=== PATIENT | female | born 1960 | race Caucasian/White ===

== ENCOUNTER 2017-01-02 22:30 | Observation (INO) | payer OTHER ==
[2017-01-02] MEDS ORDERED: ASPIRIN 81 MG PO STA (22:54)
--- NOTE | 2017-01-02 22:57 | ED ---
Chest Pain HPI - General Chief Complaint: Chest Pain Stated Complaint: chest pain Time Seen by Provider: 01/02/17 22:41 Source: patient Mode of arrival: ambulatory Limitations: no limitations - History of Present Illness Initial Comments: This patient is 56-year-old woman who presents to be evaluated for chest pain. Patient states that she was lying down to go to sleep when she developed substernal chest pain tonight dyspnea. She describes as pressure, constant, moderate severity. She states that she did take nitroglycerin and the pain resolved. She does have history of previous stenting and his current smoker. She states that it has been some years since she had either stress test or heart catheterization. MD Complaint: chest pain Onset/Timin -: hour(s) Onset: during rest Pain Location: substernal Severity: moderate Quality: tightness Consistency: constant, now resolved Improves With: nitroglycerin Worsens With: nothing Anginal Symptoms: dyspnea Treatments Prior to Arrival: nitroglycerin - Related Data Home Medications Medication Instructions Recorded Confirmed Aspirin 325 mg PO DAILY 09/09/13 01/02/17 Atorvastatin [Lipitor] 40 mg PO HS 08/04/15 01/02/17 Acetaminophen [Tylenol Extra 500 mg PO DAILY PRN 01/02/17 01/02/17 Strength] Metoprolol Succinate [Toprol XL] 50 mg PO HS 01/02/17 01/02/17 Allergies Allergy/AdvReac Type Severity Reaction Status Date / Time Milk Containing Products Allergy Unknown Verified 01/02/17 22:59 [Dairy] amitriptyline AdvReac Cough Verified 01/02/17 22:58 Review of Systems ROS Statement: Those systems with pertinent positive or pertinent negative responses have been documented in the HPI. ROS Other: All systems not noted in ROS Statement are negative. Constitutional: Denies: fever, chills Respiratory: Reports: as per HPI, dyspnea. Denies: cough, wheezes Cardiovascular: Reports: as per HPI, chest pain. Denies: palpitations, orthopnea, edema, syncope Gastrointestinal: Denies: abdominal pain, nausea, vomiting, melena, hematochezia Genitourinary: Denies: dysuria, hematuria Musculoskeletal: Denies: back pain Skin: Denies: rash Neurological: Denies: headache EKG Findings - EKG Results: EKG: interpreted by ERMD, sinus rhythm (Rate 107), normal axis, normal QRS - Blocks, [place], Hypertrophy, ST Abn: Repolarization changes or abnormalities: nonspecific abnormality, ST segment, and/or T wave Past Medical History Past Medical History: Coronary Artery Disease (CAD), Hyperlipidemia, Hypertension, Myocardial Infarction ([place]) Additional Past Medical History / Comment(s): recent abdominal pain, gas,, bloating, frequent loose stools/[place] X 3 Last Myocardial Infarction Date:: 2010 History of Any Multi-Drug Resistant Organisms: None Reported Past Surgical History: Cholecystectomy, Heart Catheterization With Stent Additional Past Surgical History / Comment(s): COLONOSCOPY Past Anesthesia/Blood Transfusion Reactions: Previous Problems w/ Anesthesia Additional Past Anesthesia/Blood Transfusion Reaction / Comment(s): some kind of problem years ago w/something for dental procedure, not sure what it was called" Date of Last Stent Placement:: 2010 Past Psychological History: Anxiety Smoking Status: Current every day smoker Past Drug Use History: None Reported - Past Family History Sister(s) Family Medical History: Deep Vein Thrombosis (DVT) General Exam Limitations: no limitations General appearance: alert, in no apparent distress Head exam: Present: atraumatic, normocephalic Eye exam: Present: normal appearance. Absent: scleral icterus, conjunctival injection ENT exam: Present: mucous membranes dry Neck exam: Present: normal inspection Respiratory exam: Present: normal lung sounds bilaterally. Absent: respiratory distress, wheezes, rales, rhonchi, stridor, chest wall tenderness, accessory muscle use, decreased breath sounds, prolonged expiratory Cardiovascular Exam: Present: normal rhythm, tachycardia (Rate 104 at my exam), normal heart sounds. Absent: systolic murmur, diastolic murmur, rubs, gallop GI/Abdominal exam: Present: soft. Absent: distended, tenderness, guarding, rebound, rigid, mass Extremities exam: Present: normal inspection, normal capillary refill. Absent: pedal edema, calf tenderness Back exam: Absent: CVA tenderness (R), CVA tenderness (L) Neurological exam: Present: alert Skin exam: Present: warm, dry, intact, normal color. 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
[2017-01-02 23:06] LABS: Basophils # (A) 0.1 k/uL (0-0.2); Basophils % (A) 1 %; CH 30.3; CHCM 32.4; Eosinophils # (A) 0.4 k/uL (0-0.7); Eosinophils % (A) 3 %; HCT 45.8 % (34.0-46.0); HDW 2.15; Luc # (Auto) 0.18; Luc % (Auto) 2; Lymphocytes # (A) 4.1 k/uL (1.0-4.8); Lymphocytes % (A) 35 %; MCH 30.8 pg (25.0-35.0); MCHC 32.7 g/dL (31.0-37.0); Mean Platelet Volume 7.5; Monocytes # (A) 0.7 k/uL (0-1.0); Monocytes % (A) 6 %; Neutrophils # (A) 6.2 k/uL (1.3-7.7); Neutrophils % (A) 54 %; RBC 4.87 m/uL (3.80-5.40); RDW 13.8 % (11.5-15.5); WBC 11.7 k/uL (3.8-10.6); WBC (Perox) 11.58
[2017-01-02 23:16] LABS: ALT 39 U/L (9-52); AST 18 U/L (14-36); Alkaline Phosphatase 82 U/L (38-126); Anion Gap 7 mmol/L; Blood Urea Nitrogen 11 mg/dL (7-17); Calcium 9.7 mg/dL (8.4-10.2); Carbon Dioxide 23 mmol/L (22-30); Chloride 111 mmol/L (98-107); Glucose 118 mg/dL (74-99); Magnesium 1.9 mg/dL (1.6-2.3); Non-African American GFR(MDRD) >60 (>60 ml/min/1.73 sqM); Sodium 141 mmol/L (137-145); Total Bilirubin 0.2 mg/dL (0.2-1.3); Total Protein 7.1 g/dL (6.3-8.2)
[2017-01-02 23:22] LABS: Partial Thromboplastin Time 25.8 sec (22.0-30.0); Prothrombin Time 9.8 sec (9.0-12.0)
[2017-01-02 23:27] LABS: Creatine Kinase 58 U/L (30-135)
--- NOTE | 2017-01-02 23:35 | XR ---
EXAMINATION TYPE: XR chest 1V portable DATE OF EXAM: 01/02/2017 COMPARISON: 11/29/2015 HISTORY: Chest pain TECHNIQUE: Single frontal view of the chest is obtained. FINDINGS: There is no heart failure nor confluent pneumonic infiltrate. There are no hilar masses. C ostophrenic angles are clear. There are chest leads. Bony thorax is intact. IMPRESSION: No active cardiopulmonary disease. Normal heart. No change.
[2017-01-02 23:41] LABS: Creatine Kinase MB 0.6 ng/mL (0.0-2.4); Troponin I <0.012 ng/mL (0.000-0.034)
[2017-01-03] MEDS ORDERED: NITROGLYCERIN SL TABS 0.4 MG TAB SUBLINGUAL PRN ×3 (00:34→10:56)
[2017-01-03] MEDS ORDERED: ACETAMINOPHEN TAB 500 MG TAB PO PRN (00:36)
[2017-01-03 01:43] VITALS: BMI 28.2
[2017-01-03 06:12] LABS: Creatine Kinase 44 U/L (30-135)
[2017-01-03 06:24] LABS: Creatine Kinase MB 0.5 ng/mL (0.0-2.4); Troponin I <0.012 ng/mL (0.000-0.034)
[2017-01-03] MEDS ORDERED: SODIUM CHLORIDE 0.9% 1,000 ML in EMPTY BAG 1 BAG IV ONE (09:03)
[2017-01-03] MEDS ORDERED: ALPRAZolam 0.5 MG TAB PO PRN (09:03)
[2017-01-03] MEDS ORDERED: ASPIRIN 325 MG TAB PO STA (09:03)
[2017-01-03] MEDS ORDERED: ALPRAZolam 0.25 MG TAB PO PRN (09:03)
[2017-01-03] MEDS ORDERED: ATORVASTATIN 80 MG TAB PO STA (09:03)
[2017-01-03] MEDS ORDERED: VERAPAMIL 2.5 MG/ML 2 ML AMP ONE (09:19)
[2017-01-03] MEDS ORDERED: LIDOCAINE 2% INJ 20 MG/ML (20 ML MDV) ONE (09:20)
[2017-01-03] MEDS ORDERED: fentaNYL (PF) 50 MCG/ML 2 ML AMP ONE (09:34)
[2017-01-03] MEDS ORDERED: HEPARIN SODIUM 1,000 UN/ML (10ML VL) ONE (09:34)
[2017-01-03] MEDS ORDERED: IV FLUID CONTINUATION 800 ML IV ONE (09:35)
[2017-01-03] MEDS ORDERED: ASPIRIN 325 MG TAB ONE (09:36)
[2017-01-03] MEDS ORDERED: ASPIRIN 325 MG TAB PO ONE (09:42)
[2017-01-03] MEDS ORDERED: fentaNYL (PF) 50 MCG/ML 2 ML AMP IVP ONE (09:53)
[2017-01-03] MEDS ORDERED: LIDOCAINE 2% INJ 20 MG/ML SQ ONE (09:58)
[2017-01-03] MEDS ORDERED: VERAPAMIL SYRINGE (5 MG/10 ML) INTRAARTER ONE (10:02)
[2017-01-03] MEDS ORDERED: MIDAZOLAM 2 MG/2 ML VIAL ONE (10:04)
[2017-01-03] MEDS ORDERED: MIDAZOLAM 2 MG/2 ML VIAL IVP ONE (10:04)
--- NOTE | 2017-01-03 10:04 | P.CRDCN ---
History of Present Illness Consult date: 01/03/17 History of present illness: This is a 56-year-old female past medical history significant for coronary artery disease with 3 stents to the RCA 2003 2 in mid RCA, 2005 1 in mid RCA and 2010 1 mid and 1 proximal RCA, dyslipidemia and chronic tobacco abuse. She follows with Dr. Jimenez in the office. She has not seen him since 2014. We have been asked to see this patient in consultation for complaints of chest discomfort last night while she was getting ready for bed. She states she felt a heaviness in her chest that went up into her neck and felt tight. This was associated with palpitations, dizziness and nausea. She denies shortness of breath, diaphoresis or vomiting. She took sublingual nitroglycerin at home and the pain subsided mildly but still persisted until she arrived in the hospital. EKG reveals sinus mechanism with T-wave inversions in the inferior leads. Chest x-ray negative for acute cardiopulmonary process. Blood pressure 124/76 with a heart rate of 79. Hemoglobin 15.0, platelets 275, d-dimer negative, BUS 11, creatinine 0.5, potassium 4, magnesium 1.9, cardiac enzymes normal 2. Current cardiac medications include aspirin 325 mg daily, Toprol 50 mg daily and atorvastatin 40 mg daily. Most recent echocardiogram was performed June 2014 ejection fraction 45% with mild mitral regurgitation. Review of Systems CONSTITUTIONAL: Denies fever. Denies chills. EYES: Denies blurred vision. Denies vision changes. Denies eye pain. EARS, NOSE, MOUTH & THROAT: Denies headache. Denies sore throat. Denies ear pain. CARDIOVASCULAR: Complains of one episode of chest tightness, resolved. Denies shortness of breath. Denies orthopnea. Denies PND. Complains of intermittent palpitations. RESPIRATORY: Denies cough. GASTROINTESTINAL: Denies abdominal pain. Denies diarrhea. Denies constipation. Complains of one episode of nausea, resolved. Denies vomiting. MUSCULOSKELETAL: Denies myalgias. INTEGUMENTARY: Denies pruitis. Denies rash. NEUROLOGIC: Denies numbness. Denies tingling. Denies weakness. PSYCHIATRIC: Denies anxiety. Denies depression. ENDOCRINE: Denies fatigue. Denies weight change. Denies polydipsia. Denies polyurina. GENITOURINARY: Denies burning, hematuria or urgency with micturation. HEMATOLOGIC: Denies history of anemia. Denies bleeding. Past Medical History Past Medical History: Coronary Artery Disease (CAD), Hyperlipidemia, Myocardial Infarction ([place]) Additional Past Medical History / Comment(s): recent abdominal pain, gas,, bloating, frequent loose stools/[place] X 3, hypotension Last Myocardial Infarction Date:: 2010 History of Any Multi-Drug Resistant Organisms: None Reported Past Surgical History: Cholecystectomy, Heart Catheterization With Stent Additional Past Surgical History / Comment(s): COLONOSCOPY, 3 stents Past Anesthesia/Blood Transfusion Reactions: Previous Problems w/ Anesthesia Additional Past Anesthesia/Blood Transfusion Reaction / Comment(s): some kind of problem years ago w/something for dental procedure, not sure what it was called" Date of Last Stent Placement:: 2010 Past Psychological History: Anxiety Smoking Status: Current some day smoker Past Alcohol Use History: None Reported Additional Past Alcohol Use History / Comment(s): STARTED SMOKING AT AGE 17- SMOKES 1PPD Past Drug Use History: None Reported - Past Family History Sister(s) Family Medical History: Deep Vein Thrombosis (DVT) Additional Family Medical History / Comment(s): fem bypass Brother(s) Family Medical History: CVA/TIA Mother Family Medical History: Coronary Artery Disease (CAD) Additional Family Medical History / Comment(s): Heart issues Father Additional Family Medical History / Comment(s): heart issues Medications and Allergies Home Medications Medication Instructions Recorded Confirmed Type Atorvastatin [Lipitor] 40 mg PO HS 08/04/15 01/02/17 History Metoprolol Succinate [Toprol XL] 50 mg PO HS 01/02/17 01/02/17 History Aspirin EC [Ecotrin] 325 mg PO DAILY 01/03/17 01/03/17 History Allergies Allergy/AdvReac Type Severity Reaction Status Date / Time Milk Containing Products Allergy Unknown Verified 01/03/17 01:37 [Dairy] amitriptyline AdvReac Cough Verified 01/03/17 01:37 Physical Exam Vitals: Vital Signs Temp Pulse Pulse Pulse Resp BP BP 01/03/17 07:37 98.0 F 79 18 124/76 01/03/17 03:10 97.8 F 86 16 01/03/17 03:07 18 01/03/17 01:51 86 18 01/03/17 01:00 88 18 151/87 01/02/17 22:58 104 H 18 152/86 01/02/17 22:57 103 H 01/02/17 22:32 99.3 F 110 H 20 175/84 BP Pulse Ox 01/03/17 07:37 94 L 01/03/17 03:10 144/83 96 01/03/17 03:07 01/03/17 01:51 01/03/17 01:00 98 01/02/17 22:58 97 01/02/17 22:57 01/02/17 22:32 96 Intake and Output 01/02/17 01/03/17 01/03/17 22:59 06:59 14:59 Other: Voiding Method Toilet # Voids 1 Weight 68.039 kg 67.7 kg GENERAL: This is a 56-year-old female in no apparent distress at the time of my examination. HEENT: Head is atraumatic, normocephalic. Pupils are equal, round. Sclerae anicteric. Conjunctivae are clear. Mucous membranes of the mouth are moist. Neck is supple. There is no jugular venous distention. No carotid bruit is heard. LUNGS: Clear to auscultation no wheezes, rales or rhonchi. No chest wall tenderness is noted on palpation or with deep breathing. HEART: Regular rate and rhythm without murmurs, rubs or gallops. S1 and S2 heard. ABDOMEN: Soft, nontender. Bowel sounds are heard. No organomegaly noted. EXTREMITIES: 2+ peripheral pulses with no evidence of peripheral edema and no calf tenderness noted. NEUROLOGIC: Patient is awake, alert and oriented x3. Results 01/02/17 22:15 01/02/17 22:15 Cardiac Enzymes 01/02/17 01/02/17 01/03/17 Range/Units 22:15 22:15 05:26 AST 18 (14-36) U/L CK-MB (CK-2) 0.6 0.5 (0.0-2.4) ng/mL Troponin I <0.012 <0.012 (0.000-0.034) ng/mL Coagulation 01/02/17 Range/Units 22:15 PT 9.8 (9.0-12.0) sec APTT 25.8 (22.0-30.0) sec CBC 01/02/17 Range/Units 22:15 WBC 11.7 H (3.8-10.6) k/uL RBC 4.87 (3.80-5.40) m/uL Hgb 15.0 (11.4-16.0) gm/dL Hct 45.8 (34.0-46.0) % Plt Count 275 (150-450) k/uL Comprehensive Metabolic Panel 01/02/17 Range/Units 22:15 Sodium 141 (137-145) mmol/L Potassium 4.0 (3.5-5.1) mmol/L Chloride 111 H (98-107) mmol/L Carbon Dioxide 23 (22-30) mmol/L BUN 11 (7-17) mg/dL Creatinine 0.50 L (0.52-1.04) mg/dL Glucose 118 H (74-99) mg/dL Calcium 9.7 (8.4-10.2) mg/dL AST 18 (14-36) U/L ALT 39 (9-52) U/L Alkaline Phosphatase 82 (38-126) U/L Total Protein 7.1 (6.3-8.2) g/dL Albumin 4.0 (3.5-5.0) g/dL Current Medications Generic Name Dose Route Start Last Admin Trade Name Freq PRN Reason Stop Dose Admin Acetaminophen 500 mg 01/03/17 00:36 Tylenol Tab PO DAILY PRN Pain Aspirin 325 mg 01/04/17 09:00 Aspirin PO DAILY JULIA Atorvastatin Calcium 40 mg 01/03/17 21:00 Lipitor PO HS JULIA Metoprolol Succinate 50 mg 01/03/17 21:00 Toprol Xl PO HS JULIA Nitroglycerin 0.4 mg 01/03/17 00:34 Nitrostat SUBLINGUAL Q5M PRN Chest Pain Sodium Chloride 10 ml 01/03/17 09:00 Saline Flush IV BID JULIA Intake and Output 01/02/17 01/03/17 01/03/17 22:59 06:59 14:59 Other: Voiding Method Toilet # Voids 1 Weight 68.039 kg 67.7 kg 01/02/17 22:15 01/02/17 22:15 Assessment and Plan Assessment: ASSESSMENT 1. Chest pain at rest with multiple associated symptoms. Suggestive of progression of CAD 2. History of coronary artery disease with multiple stents to the RCA 3. Hyperlipidemia 4. Chronic tobacco abuse PLAN Obtain 2-D echocardiogram and Doppler study to assess cardiac structure and function. Due to the probability that there is progression of coronary artery disease we recommended she proceed with cardiac catheterization at this time. I have discussed the risks, benefits and alternative therapies for the above-mentioned procedure and for both sedation/analgesia as well as necessary blood product administration, if indicated, as they pertain to this patient. The patient has indicated understanding and acceptance of the risks and procedures discussed. She has agreed to move forward with the above-stated procedure and has been scheduled for this morning. Smoking cessation has been discussed. Nurse Practitioner note has been reviewed, I agree with a documented findings and plan of care. Patient was seen and examined.
[2017-01-03] MEDS ORDERED: BIVALIRUDIN BOLUS 250 MG/50 ML IV ONE (10:14)
[2017-01-03] MEDS ORDERED: BIVALIRUDIN 250 MG in SODIUM CHLORIDE 0.9% 50 ML IV ONE (10:15)
[2017-01-03] MEDS ORDERED: CLOPIDOGREL 75 MG TAB ONE ×2 (10:17)
[2017-01-03] MEDS ORDERED: NITROGLYCERIN 1000MCG/10ML SYRINGE INTRACORON ONE (10:20)
[2017-01-03] MEDS ORDERED: CLOPIDOGREL 75 MG TAB PO ONE (10:23)
[2017-01-03] MEDS ORDERED: IOHEXOL 350 MG/ML 125ML BOTTLE INJ ONE (10:39)
[2017-01-03] MEDS ORDERED: MAG HYDROX/AL HYDROX/SIMETH 30 ML CUP PO PRN (10:56)
[2017-01-03] MEDS ORDERED: RX INFO: IV CONTRAST WAS GIVEN 1 EACH MISC MISCELLANE PRN (10:56)
[2017-01-03] MEDS ORDERED: ATROPINE SULFATE 0.1 MG/ML 10ML SYRINGE IV PRN (10:56)
[2017-01-03] MEDS ORDERED: ZOLPIDEM 5 MG TAB PO PRN (10:56)
--- NOTE | 2017-01-03 11:27 | CC ---
CARDIAC CATHETERIZATION REPORT Mrs. Hopson is a 56-year-old female with a known history of coronary artery disease, status post stenting of 2003, 2005 and most recently 2010, who presented with symptoms of chest discomfort, relieved with nitroglycerin, highly suggestive of angina pectoris. Her EKG and enzymes were unremarkable, but review of her risk factors and her prior history, recommendation made regarding cardiac catheterization. The procedure risks and complication were discussed with the patient who is in full understanding and agreement. PROCEDURE: Patient was brought to the [facility] in a fasting semi-sedated state after receiving fentanyl and Benadryl and achieving moderate conscious sedated state. Using Xylocaine anesthesia and Seldinger technique, a 6-Bengali sheath was introduced in the right radial artery. Selective right and left angiography performed using 5-Bengali 3.5 bend right and left Herminia catheter, multiple views of the coronary artery including hemiaxial views obtained. Following that, a 5-Bengali tight pigtail catheter was introduced into the left ventricle and a 30 degree GOLD view of the left ventricle was obtained. Following that, catheters were removed, images were reviewed. FINDINGS: 1. LEFT MAIN: This is a large-sized vessel bifurcating into left circumflex, left anterior descending artery. The left main coronary artery is without any evidence of high-grade stenosis. 2. LEFT ANTERIOR DESCENDING ARTERY: This is a large-sized vessel, reaching toward the apex with a wraparound apex segment, giving rise to a diagonal branch of moderate caliber. The left anterior descending artery as well as branches have no evidence of obstructive coronary disease. 3. LEFT CIRCUMFLEX: This is a nondominant vessel, giving rise to a large obtuse marginal branch. The left circumflex has a 10% to 20% plaque in the mid segment. The rest of the vessel has no high-grade stenosis. 4. RIGHT CORONARY ARTERY: This is a large dominant vessel bifurcating into PDA and posterior lateral sagittal branches. The mid and distal segment are stented distally prior to the bifurcation. At the distal edge of the stent, there is a 99% stenosis. The rest of the stented segment in the mid vessel has intimal restenoses of about 30%. Distal to the PDA and PLV have no high-grade stenosis. 5. LEFT VENTRICULOGRAM: Left ventriculogram is performed in 30 degree GOLD view and revealed inferobasal hypokinesis. The ejection fraction is estimated at 50%. There was no significant mitral regurgitation. 6. HEMODYNAMICS: There was no gradient across the aortic valve. The left ventricular end-diastolic pressure was 12 mmHg penis/. CONCLUSION: 1. Mild disease in the left circumflex. 2. Significant stenosis in the distal right coronary artery. 3. Minimally impaired left ventricular systolic function. RECOMMENDATION: In view of the finding on the anatomy, I would recommend proceeding with the angioplasty and stenting of the right coronary artery. The procedure, risks and complications were discussed with the patient who is in full understanding and agreement. MMDAYSI / IJN: [id number] /
--- NOTE | 2017-01-03 11:42 | AS ---
ARTERIAL STUDY Mrs. Hopson is a 56-year-old female with a known history of coronary artery disease, prior stenting of the right coronary artery, who presented with symptoms of chest discomfort, underwent cardiac catheterization, was found to have significant obstructive disease involving the distal right coronary artery. In view of that, recommendation made regarding angioplasty and stenting. The procedure as well as risks and complication were discussed with the patient who is in full understanding and agreement. PROCEDURE: A 6-Georgian left 3.5 bend FR guiding catheter was introduced in the system. After cannulating the ostium of the right coronary artery, a 0.014 advanced medium weight J- wire was advanced across the lesion, positioned distally. Then a 2.5 x 12 mm Trek balloon was advanced and one inflation at 10 atmospheres was done. Following that, the balloon was removed and a 2.75 x 18 mm Xience Alpine stent was deployed, post-dilated at 16 atmospheres. Subsequent inflation with the balloon in the proximal and mid segment of the right coronary artery were performed at a maximum of 16 atmospheres. After the last inflation, after appropriate wait, the balloon and the guidewire were withdrawn back in the guiding catheter. Images were obtained and repeated. Those images revealed stable successful stenting. At that point, the guiding catheter, the balloon and the guidewire guide were removed. The sheath was removed. Hemostasis was obtained with deployment of a TR band. There was no immediate complication. Patient is returned to her room in stable condition. Of note, patient had chest discomfort and jaw discomfort with inflation that resulted in procedure. She received Angiomax per protocol as well as oral loading dose of clopidogrel. FINDINGS: Successful stenting of the distal right coronary artery with reduction of stenosis from 99% to 0%. RECOMMENDATION: Patient will be continued on aspirin, Plavix, beta maggie, DINAH inhibitor, and statin. The importance of dual antiplatelet treatment was discussed with the patient and her family who are in full understanding and agreement. DURATION OF THE PROCEDURE: 41 minutes. MMODL / IJN: [id number] /
--- NOTE | 2017-01-03 11:47 | LTR ---
DATE OF SERVICE: 01/03/2017 RE: Rose Hopson Dear Dr. Solis; I had the pleasure to perform cardiac catheterization, coronary angioplasty and stenting on Ms. Hopson at [facility] on January 03, 2017 and a full copy of the procedure note will be forwarded to you. In brief, she underwent successful stenting of the distal right coronary artery using a drug-eluting stent. I am hopeful that this procedure will stabilize her status and thank you again for allowing me to participate in this patient's care. Please feel free to call for any questions. Sincerely yours, MD AYAAN Medrano / ALEJANDRON: [id number] /
[2017-01-03] MEDS ORDERED: METOPROLOL SUCCINATE (ER) 50 MG TAB.ER.24H PO SCH (21:00)
[2017-01-03] MEDS ORDERED: ATORVASTATIN 40 MG TAB PO SCH (21:00)
--- NOTE | 2017-01-04 04:29 | HP ---
HISTORY AND PHYSICAL CHIEF COMPLAINT: 56-year-old, white female, with history of stents to the RCA in 2004, to the mid RCA in 2005 and one to the mid RCA in 2010. Chronic nicotine addiction, dyslipidemia, comes into the hospital with some chest discomfort. He is getting ready for bed. Heaviness in her chest, her neck felt tight. She had some palpitations, dizziness and nausea and no shortness of breath. She took some nitroglycerin with mild improvement. Brought to the hospital and admitted to rule out myocardial infarction. So far troponins are negative times two. Chest x-ray was negative for any infiltrate. D- dimer was negative. MEDICATION: At home include: 1. Aspirin 325 mg daily. 2. Toprol-XL 50 mg daily. 3. Atorvastatin 40 mg daily. 4. Echo in 2014 showed ejection fraction 45%. REVIEW OF SYSTEMS: Fourteen point review of systems negative except for mentioned in HPI. No history of trauma to the chest. PAST MEDICAL HISTORY: Coronary artery disease. Stents as mentioned above, dyslipidemia, prior myocardial infarction. SURGICAL HISTORY: Cholecystectomy, heart catheterization with stent. Past psych history of anxiety. SOCIAL HISTORY: Current everyday smoker. FAMILY HISTORY: Sister with DVT, brother with CVA/TIA, mother with coronary artery disease. Father with heart issues. Home medications as mentioned above. ALLERGIES: MILK AND AMITRIPTYLINE. PHYSICAL EXAMINATION: Vital signs: Temperature 98, pulse 80s to 70s respiratory rate 16 to 18, blood pressure is 150s to 170s over 80s. Cardiovascular S1, S2. Lungs transmitted upper sounds. GI soft, nontender. Psych anxious and nervous. Vascular normal dorsalis pedis, posterior tibial, radial pulse. Cranial nerves, neurologic exam cranial nerves are intact. Psych as mentioned above. LABORATORY DATA: White count 11.7, hemoglobin 15.0, BUN 11, creatinine 0.5. ASSESSMENT: 1. Atypical chest pain. Rule out myocardial infarction. 2. coronary artery disease. 3. History of stents to right coronary artery. 4. Nicotine addition. 5. Dyslipidemia. PLAN: 1. Cardiology consult. Rule out myocardial infarction. 2. Please see further orders. MMODL / IJN: [id number] /
[2017-01-04 06:36] LABS: Anion Gap 8 mmol/L; Blood Urea Nitrogen 10 mg/dL (7-17); Calcium 9.2 mg/dL (8.4-10.2); Carbon Dioxide 23 mmol/L (22-30); Chloride 107 mmol/L (98-107); Glucose 107 mg/dL (74-99); Non-African American GFR(MDRD) >60 (>60 ml/min/1.73 sqM); Potassium 4.6 mmol/L (3.5-5.1); Sodium 138 mmol/L (137-145)
[2017-01-04] MEDS ORDERED: ASPIRIN 325 MG TAB PO SCH (09:00)
[2017-01-04] MEDS ORDERED: ASPIRIN 81 MG PO SCH (09:00)
[2017-01-04] MEDS ORDERED: CLOPIDOGREL 75 MG TAB PO SCH (09:00)
[2017-01-04 09:38] VITALS: BP 129/66; PULSE 73; RESP 18; TEMP 98.2
--- NOTE | 2017-01-04 10:59 | P.PN ---
Subjective Progress Note Date: 01/04/17 Principal diagnosis: RCA stent This is a pleasant 56-year-old female with past medical history significant for coronary artery disease with prior RCA stenting, hyperlipidemia , chronic tobacco use, who presented to the hospital with symptoms of chest discomfort. She was taken to the cardiac catheterization lab by Dr. Jimenez where she underwent angioplasty and stenting of the RCA. EKG this morning showed normal sinus rhythm with no changes from post-PCI. Blood pressure 128/ 60 with heart rate in the 70s, 95% on room air. Sodium 138, potassium 4.6, BUN 10, creatinine 0.6. Patient seen and examined this morning, denies any chest pain or difficulty in breathing. She's been up ambulating without any difficulty. Objective - Vital Signs Vital signs: Vital Signs Temp 98.2 F 01/04/17 09:00 Pulse 73 01/04/17 09:00 Resp 18 01/04/17 09:00 BP 129/66 01/04/17 09:00 Pulse Ox 95 01/04/17 09:00 Intake & Output 01/03/17 01/04/17 01/04/17 18:59 06:59 18:59 Intake Total 509 870 240 Output Total 900 Balance 509 -30 240 Weight 67.7 kg 67 kg Intake: IV 269 Intake, IV Titration 10 Amount Sodium Chloride 0.9% 1, 10 000 ml In Empty Bag 1 bag @ 1 ML/KG/HR 67.7 mls/hr IV .[id number] ONE Rx#: [id number] Oral 240 860 240 Output: Urine 900 Other: Voiding Method Toilet Toilet # Voids 1 1 - Exam PHYSICAL EXAMINATION: HEENT: [Head is atraumatic, normocephalic. Pupils equal, round. Neck is supple. There is no elevated jugular venous pressure.] HEART EXAMINATION: [Heart S1, S2 normal. No murmur or gallop heard.] CHEST EXAMINATION:[ Lungs are clear to auscultation and precussion. No chest wall tenderness is noted on palpation or with deep breathing.] ABDOMEN: [ Soft, nontender. Bowel sounds are heard. No organomegaly noted]. Right radial site clean and dry, good distal pulse. EXTREMITIES:[ 2+ peripheral pulses with no evidence of peripheral edema and no calf tenderness noted]. NEUROLOGIC [patient is awake, alert and oriented -3.] . - Labs CBC & Chem 7: 01/02/17 22:15 01/04/17 05:41 Labs: Abnormal Lab Results - Last 24 Hours (Table) 01/04/17 Range/Units 05:41 Glucose 107 H (74-99) mg/dL Assessment and Plan Plan: Assessment and plan #1 chest pain, status post angioplasty and stenting of the right coronary artery #2 known history of coronary artery disease with prior RCA stenting #3 hyperlipidemia #4 nicotine dependence Plan Patient may be discharged home today. We will make her a follow-up appointment to see Dr. Jimenez in the office post discharge. Patient will be discharged home on aspirin 81 mg daily, Lipitor 40 mg daily, Plavix 75 mg daily, metoprolol tartrate 50 mg at at bedtime, and sublingual nitroglycerin as needed for chest pain. Patient has been provided prescriptions for all of the above medications and has been educated regarding the importance of nicotine cessation. DNP note has been reviewed, I agree with a documented findings and plan of care. Patient was seen and examined.
--- NOTE | 2017-01-14 11:48 | ECHOF ---
Referral Reason:chest pain MEASUREMENTS -------- HEIGHT: 91.4 cm WEIGHT: 67.6 kg BP: IVSd: 0.9 cm (0.6 - 1.1) LVIDd: 3.6 cm (3.9 - 5.3) LVPWd: 1.0 cm (0.6 - 1.1) IVSs: 1.2 cm LVIDs: 3.2 cm LVPWs: 1.4 cm LA Diam: 3.3 cm (2.7 - 3.8) Ao Diam: 3.0 cm (2.0 - 3.7) AV Cusp: 1.9 cm (1.5 - 2.6) LA Diam: 3.3 cm (2.7 - 3.8) MV EXCURSION: 18.405 mm (> 18.000) MV EF SLOPE: 118 mm/s (70 - 150) EPSS: 2.3 cm MV E Kofi: 0.43 m/s MV DecT: 310 ms MV A Kofi: 0.82 m/s MV E/A Ratio: 0.53 RAP: 5.00 mmHg RVSP: 18.79 mmHg FINDINGS -------- Sinus rhythm. This was a technically good study. The left ventricular size is normal. Left ventricular wall thickness is normal. Overall left vent ricular systolic function is mildly impaired with, an EF between 45 - 50 %. Basal lateral LV wall m otion is hypokinetic. Basal inferior LV wall motion is hypokinetic. The right ventricle is normal in size. Normal LA size by volume 22+/-6 ml/m2. The right atrial size is normal. The aortic valve is trileaflet, and appears structurally normal. No aortic stenosis or regurgitation. The mitral valve is normal. Mild mitral regurgitation is present. Mild tricuspid regurgitation present. There is no evidence of pulmonary hypertension. The right v entricular systolic pressure, as measured by Doppler, is 18.79mmHg. Trace/mild (physiologic) pulmonic regurgitation. The aortic root size is normal. There is no pericardial effusion. CONCLUSIONS -------- 1. Sinus rhythm. 2. This was a technically good study. 3. The left ventricular size is normal. 4. Overall left ventricular systolic function is mildly impaired with, an EF between 45 - 50 %. 5. Basal lateral LV wall motion is hypokinetic. 6. Basal inferior LV wall motion is hypokinetic. 7. Normal LA size by volume 22+/-6 ml/m2. 8. The aortic valve is trileaflet, and appears structurally normal. No aortic stenosis or regurgitati on. 9. Mild mitral regurgitation is present. 10. Mild tricuspid regurgitation present. 11. There is no evidence of pulmonary hypertension. 12. Trace/mild (physiologic) pulmonic regurgitation. 13. The aortic root size is normal. 14. There is no pericardial effusion. [employer] DERRICK OPERATOR: Jessica Peter RDCS
--- NOTE | 2017-02-10 10:46 | P.DS ---
Providers Date of admission: 01/03/17 00:34 Attending physician: Lucio Solis Consults: 01/03/17 00:34 Consult Physician Routine Consulting Provider: Vicki Beard Consult Reason/Comments: chest pain Do you want consulting provider notified?: Yes 01/03/17 10:56 Consult Physician Routine Consulting Provider: Cardiology Renzo Consult Reason/Comments: Post Interventional patient Do you want consulting provider notified?: Already Contacted Primary care physician: [facility] Course: Patient was admitted with atypical chest pain very suspicious for angina patient was placed on cardiac medications she was taking the 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 angioplasty which found on occlusion on the right distal coronary artery for which a stent was placed risk factor modification was given to the patient all medicines were adjusted for the patient she'll follow-up with cardiology post angioplasty please thought please see all cardiology reports in the chart all laboratory values and x-rays Patient Condition at Discharge: Fair Plan - Discharge Summary New Discharge Prescriptions: New Aspirin 81 mg PO DAILY #81 chew Clopidogrel [Plavix] 75 mg PO DAILY #30 tab Nitroglycerin Sl Tabs [Nitrostat] 0.4 mg SUBLINGUAL Q5M PRN #25 tab PRN Reason: Chest Pain Continue Atorvastatin [Lipitor] 40 mg PO HS Metoprolol Succinate [Toprol XL] 50 mg PO HS Discontinued Aspirin EC [Ecotrin] 325 mg PO DAILY Discharge Medication List Atorvastatin [Lipitor] 40 mg PO HS 08/04/15 [History] Metoprolol Succinate [Toprol XL] 50 mg PO HS 01/02/17 [History] Aspirin 81 mg PO DAILY #81 chew 01/04/17 [Rx] Clopidogrel [Plavix] 75 mg PO DAILY #30 tab 01/04/17 [Rx] Nitroglycerin Sl Tabs [Nitrostat] 0.4 mg SUBLINGUAL Q5M PRN #25 tab 01/04/17 [Rx ] Follow up Appointment(s)/Referral(s): Jose Jimenez MD [STAFF PHYSICIAN] - 01/11/17 9:30 am Lucio Solis MD [Primary Care Provider] - 01/07/17 1:00 pm Patient Instructions/Handouts: *Surgery [facility] - After Heart Catheterization - Recreational Counselor Instructions, Left Heart Catheterization (DC), Heart Healthy Diet (DC) Discharge Disposition: HOME SELF-CARE
== END 2017-01-04 11:19 | disposition home or self-care (01) ==
LOC: EC 22:30 → 3OBS 01-03 00:34 → 6SEL 01-03 11:01
PROVIDERS: ADMIT Family Medicine; ATTEND Family Medicine
DX: I25.10 Atherosclerotic heart disease of native coronary artery without angina pectoris (principal); F17.200 Nicotine dependence, unspecified, uncomplicated; F41.9 Anxiety disorder, unspecified; I10 Essential (primary) hypertension; I25.2 Old myocardial infarction; E78.5 Hyperlipidemia, unspecified; Z95.5 Presence of coronary angioplasty implant and graft; Z82.49 Family history of ischemic heart disease and other diseases of the circulatory system; Z79.82 Long term (current) use of aspirin; Z79.899 Other long term (current) drug therapy; Z88.8 Allergy status to other drugs, medicaments and biological substances; Z91.011 Allergy to milk products; Z90.49 Acquired absence of other specified parts of digestive tract
CPT/HCPCS: 99285; 36415; 93005; 93306; 93458; 85379; 83880; 80053; 80048; 82550 ×2; 82553 ×2; 83735; 84484 ×2; 85025; 85610; 85730; 71010; G0378 ×3; C1769 ×2; C1894; C1725; C1887; C1874; J2001; J2250; J3010; Q9957; J0583; Q9967

== ENCOUNTER 2017-11-09 21:37 | Emergency (ER) | payer OTHER ==
[2017-11-09 21:44] VITALS: RESP 18
[2017-11-09 23:12] LABS: Basophils # (A) 0.1 k/uL (0-0.2); Basophils % (A) 1 %; Eosinophils # (A) 0.2 k/uL (0-0.7); Eosinophils % (A) 2 %; HCT 45.3 % (34.0-46.0); Lymphocytes # (A) 3.3 k/uL (1.0-4.8); Lymphocytes % (A) 26 %; MCH 31.1 pg (25.0-35.0); MCHC 33.1 g/dL (31.0-37.0); MCV 94.1 fL (80.0-100.0); Monocytes # (A) 0.6 k/uL (0-1.0); Monocytes % (A) 5 %; Neutrophils # (A) 8.6 k/uL (1.3-7.7); Neutrophils % (A) 66 %; Platelet Count 263 k/uL (150-450); RBC 4.82 m/uL (3.80-5.40); RDW 12.8 % (11.5-15.5)
[2017-11-09 23:17] LABS: Appearance,Urine Turbid (Clear); Bilirubin,Urine Negative (Negative); Blood,Urine Large (Negative); Color,Urine Dark Brown; Glucose,Urine (UA) 1+ (Negative); Ketones,Urine Trace (Negative); Leukocyte Esterase,Urine Moderate (Negative); Mucus,Urine Many /hpf; Nitrite,Urine Negative (Negative); PH, Urine 5.5 (5.0-8.0); Protein,Urine 2+ (Negative); RBC,Urine >182 /hpf (0-5); Urobilinogen,Urine <2.0 mg/dL (<2.0)
[2017-11-09 23:27] LABS: Anion Gap 8 mmol/L; Blood Urea Nitrogen 12 mg/dL (7-17); Calcium 9.2 mg/dL (8.4-10.2); Carbon Dioxide 24 mmol/L (22-30); Chloride 109 mmol/L (98-107); Glucose 139 mg/dL (74-99); Potassium 4.4 mmol/L (3.5-5.1); Sodium 141 mmol/L (137-145)
--- NOTE | 2017-11-09 23:35 | CT ---
EXAMINATION TYPE: CT renal stones wo con DATE OF EXAM: 11/09/2017 HISTORY: No prior, gross hematuria and RLQ pain, renal stone protocol CT DLP: 347.70 mGycm. Automated Exposure Control for Dose Reduction was Utilized. TECHNIQUE: CT scan of the abdomen and pelvis is performed without oral or IV contrast. COMPARISON: None FINDINGS: Lung bases are clear. There is no pleural effusion. Heart size is normal. Liver spleen pancreas appear normal. There are clips from cholecystectomy. Bile ducts are not dilated . There is no adrenal mass. Kidneys have normal size. There is right-sided hydronephrosis. There is m ild right-sided perinephric edema. There is mild right hydroureter. There are multiple vascular calci fications. A right ureteral calculus is possible. There is proximal right periureteral edema. There i s no evidence of obstruction on the left side. There is no retroperitoneal adenopathy. Abdominal aorta is atheromatous. There is no ascites. Bladder distends smoothly. Uterus is anteverted. There is L5-S1 spondylotic change. There is no compression fracture. There is no sign of pneumoperitoneum. Appendix is medial and appears normal. IMPRESSION: There is mild right-sided hydronephrosis and hydroureter. I suspect obstructing ureteral stone. There are numerous phleboliths in the pelvis and along the right ureter.
--- NOTE | 2017-11-09 23:53 | ED ---
Female Urogenital HPI - General Chief complaint: Urogenital Stated complaint: Abd pain Time Seen by Provider: 11/09/17 22:22 Source: patient Mode of arrival: ambulatory Limitations: no limitations - History of Present Illness Initial comments: Patient is a 57 children were present with the chief complaint of right lower quadrant abdominal pain, and hematuria. The patient states that her pain started about 11:00 this morning. It was abrupt in onset. She states it was 10 out of 10 earlier today but the pain has somewhat subsided. Patient states that there was no inciting incident, there were no aggravating or alleviating factors. Timing is been constant. She denies any dysuria at this time. She does not have any back pain. - Related Data Home Medications Medication Instructions Recorded Confirmed Atorvastatin [Lipitor] 40 mg PO HS 08/04/15 01/02/17 Metoprolol Succinate [Toprol XL] 50 mg PO HS 01/02/17 01/02/17 Previous Rx's Medication Instructions Recorded Aspirin 81 mg PO DAILY #81 chew 01/04/17 Clopidogrel [Plavix] 75 mg PO DAILY #30 tab 01/04/17 Nitroglycerin Sl Tabs [Nitrostat] 0.4 mg SUBLINGUAL Q5M PRN #25 tab 01/04/17 HYDROcodone/APAP 5-325MG [[place] 1 tab PO Q4HR PRN 3 Days #18 tab 11/09/17 5-325] Levofloxacin [Levaquin] 750 mg PO DAILY #4 tab 11/09/17 Ondansetron HCl [Zofran] 4 mg PO TID PRN #12 tablet 11/09/17 Tamsulosin HCl [Flomax] 0.4 mg PO DAILY #3 capsule 11/09/17 Allergies Allergy/AdvReac Type Severity Reaction Status Date / Time Milk Containing Products Allergy Unknown Verified 11/09/17 21:44 [Dairy] amitriptyline AdvReac Cough Verified 11/09/17 21:44 aspirin AdvReac Nausea & Verified 11/09/17 21:44 Vomiting Review of Systems ROS Statement: Those systems with pertinent positive or pertinent negative responses have been documented in the HPI. ROS Other: All systems not noted in ROS Statement are negative. Gastrointestinal: Reports: abdominal pain, nausea Genitourinary: Reports: hematuria Past Medical History Past Medical History: Coronary Artery Disease (CAD), Diabetes Mellitus, Hyperlipidemia, Myocardial Infarction (NC) Additional Past Medical History / Comment(s): recent abdominal pain, gas,, bloating, frequent loose stools/NC X 3, hypotension Last Myocardial Infarction Date:: 2010 History of Any Multi-Drug Resistant Organisms: None Reported Past Surgical History: Cholecystectomy, Heart Catheterization With Stent Additional Past Surgical History / Comment(s): COLONOSCOPY, 3 stents Past Anesthesia/Blood Transfusion Reactions: Previous Problems w/ Anesthesia Additional Past Anesthesia/Blood Transfusion Reaction / Comment(s): some kind of problem years ago w/something for dental procedure, not sure what it was called" Date of Last Stent Placement:: 2010 Past Psychological History: Anxiety Smoking Status: Current some day smoker Past Alcohol Use History: None Reported Past Drug Use History: None Reported - Past Family History Sister(s) Family Medical History: Deep Vein Thrombosis (DVT) Additional Family Medical History / Comment(s): fem bypass Brother(s) Family Medical History: CVA/TIA Mother Family Medical History: Coronary Artery Disease (CAD) Additional Family Medical History / Comment(s): Heart issues Father Additional Family Medical History / Comment(s): heart issues General Exam Limitations: no limitations General appearance: alert, in no apparent distress Head exam: Present: atraumatic, normocephalic Eye exam: Present: normal appearance ENT exam: Present: normal exam Neck exam: Present: normal inspection Respiratory exam: Present: normal lung sounds bilaterally. Absent: respiratory distress, wheezes Cardiovascular Exam: Present: regular rate, normal rhythm GI/Abdominal exam: Present: soft. Absent: distended, tenderness Rectal exam: Present: deferred Extremities exam: Present: normal inspection Back exam: Present: normal inspection. Absent: CVA tenderness (R), CVA tenderness (L) Neurological exam: Present: alert, oriented X3 Psychiatric exam: Present: normal affect, normal mood Skin exam: Present: warm, dry, intact Course Vital Signs 11/09/17 21:42 Temperature 98.8 F Pulse Rate 119 H Respiratory 18 Rate Blood Pressure 153/81 O2 Sat by Pulse 95 Oximetry Medical Decision Making - Medical Decision Making Patient presents with chief complaint right lower quadrant abdominal pain and hematuria. On initial evaluation, vitals are stable, patient is in no acute distress. Patient offered pain medication but declines. History and physical examination are concerning for a renal stone. Patient does not currently have any tenderness to palpation of the abdomen noted she had CVA tenderness. She was evaluated with computed tomography scan of the abdomen and pelvis without contrast and basic labs. Lab evaluation is unremarkable, renal function is stable. Urinalysis shows hematuria with many white cells. Computed tomography scan shows stranding in the perinephric region on the right, there are multiple phleboliths along the ureter, there is mild hydronephrosis and hydroureter. There are vascular calcifications that make defining a ureteral stone difficult however given all other information available, patient is likely suffering from a passing renal stone. On reevaluation, patient remains pain-free. I discussed outpatient management with her and her significant other, they're agreeable. Patient will be discharged with prescriptions for [place], Flomax, and instruction to follow up with primary care in 1-2 days, and to return to the emergency department sooner if symptoms worsen or change. - Lab Data Result diagrams: 11/09/17 22:30 11/09/17 22:30 Lab Results 11/09/17 11/09/17 11/09/17 Range/Units 22:30 22:30 22:30 WBC 13.0 H (3.8-10.6) k/uL RBC 4.82 (3.80-5.40) m/uL Hgb 15.0 (11.4-16.0) gm/dL Hct 45.3 (34.0-46.0) % MCV 94.1 (80.0-100.0) fL MCH 31.1 (25.0-35.0) pg MCHC 33.1 (31.0-37.0) g/dL RDW 12.8 (11.5-15.5) % Plt Count 263 (150-450) k/uL Neutrophils % 66 % Lymphocytes % 26 % Monocytes % 5 % Eosinophils % 2 % Basophils % 1 % Neutrophils # 8.6 H (1.3-7.7) k/uL Lymphocytes # 3.3 (1.0-4.8) k/uL Monocytes # 0.6 (0-1.0) k/uL Eosinophils # 0.2 (0-0.7) k/uL Basophils # 0.1 (0-0.2) k/uL Sodium 141 (137-145) mmol/L Potassium 4.4 (3.5-5.1) mmol/L Chloride 109 H (98-107) mmol/L Carbon Dioxide 24 (22-30) mmol/L Anion Gap 8 mmol/L BUN 12 (7-17) mg/dL Creatinine 0.45 L (0.52-1.04) mg/dL Est GFR (CKD-EPI)AfAm >90 (>60 ml/min/1.73 sqM) Est GFR (CKD-EPI)NonAf >90 (>60 ml/min/1.73 sqM) Glucose 139 H (74-99) mg/dL Calcium 9.2 (8.4-10.2) mg/dL Urine Color Dark Brown Urine Appearance Turbid H (Clear) Urine pH 5.5 (5.0-8.0) Ur Specific [place] 1.020 (1.001-1.035) Urine Protein 2+ H (Negative) Urine Glucose (UA) 1+ H (Negative) Urine Ketones Trace H (Negative) Urine Blood Large H (Negative) Urine Nitrite Negative (Negative) Urine Bilirubin Negative (Negative) Urine Urobilinogen <2.0 (<2.0) mg/dL Ur Leukocyte Esterase Moderate H (Negative) Urine RBC >182 H (0-5) /hpf Urine WBC >182 H (0-5) /hpf Urine Mucus Many H (None) /hpf Disposition Clinical Impression: Urinary tract infection, Ureteral stone with hydronephrosis Disposition: HOME SELF-CARE Condition: Good Is patient prescribed a controlled substance at d/c from ED?: Yes If prescribed controlled substance>3 days was MAPS reviewed?: Prescribed <3 Days Referrals: Roz Quinones DO [Primary Care Provider] - 1-2 days
[2017-11-10 00:12] VITALS: BP 142/95; PULSE 82; TEMP 98.5
[2017-11-10] MEDS ORDERED: LEVOFLOXACIN 750 MG TAB PO STA (00:26)
[2017-11-10] MEDS ORDERED: TAMSULOSIN 0.4 MG CAP.ER.24H PO STA (00:26)
== END 2017-11-10 00:35 | disposition home or self-care (01) ==
LOC: EC 21:37
DX: N39.0 Urinary tract infection, site not specified (principal); N20.1 Calculus of ureter; I25.10 Atherosclerotic heart disease of native coronary artery without angina pectoris; E78.5 Hyperlipidemia, unspecified; Z95.5 Presence of coronary angioplasty implant and graft; I25.2 Old myocardial infarction; F17.200 Nicotine dependence, unspecified, uncomplicated; Z90.49 Acquired absence of other specified parts of digestive tract; Z53.29 Procedure and treatment not carried out because of patient's decision for other reasons; Z79.899 Other long term (current) drug therapy; Z91.011 Allergy to milk products; Z88.8 Allergy status to other drugs, medicaments and biological substances; Z88.6 Allergy status to analgesic agent
CPT/HCPCS: 36415; 74150; 80048; 81001; 85025; 87086; 99284

== ENCOUNTER → 2017-12-27 | Outpatient (CLI) | payer OTHER ==
--- NOTE | 2017-12-30 13:37 | MM ---
Reason for exam: screening (asymptomatic). Last mammogram was performed 4 years and 4 months ago. History: Patient is postmenopausal. Took hormonal contraceptives for 2 years. Physical Findings: A clinical breast exam by your physician is recommended on an annual basis and results should be correlated with mammographic findings. MG Screening Mammo w CAD Bilateral CC and MLO view(s) were taken. Prior study comparison: August 14, 2013, bilateral MG screening mammo w CAD. December 17, 2001, bilateral screening mammogram. The breast tissue is heterogeneously dense. This may lower the sensitivity of mammography. Stable benign calcifications. There is no discrete abnormality. No significant changes when compared with prior studies. ASSESSMENT: Benign, BI-RAD 2 RECOMMENDATION: Routine screening mammogram of both breasts in 1 year.
== END ==
LOC: RADMAMWWP 15:36
PROVIDERS: ATTEND Family Medicine
DX: Z12.31 Encounter for screening mammogram for malignant neoplasm of breast (principal)
CPT/HCPCS: 77067

== ENCOUNTER 2022-08-07 05:29 | Observation (INO) | payer OTHER ==
[2022-08-07] MEDS ORDERED: MORPHINE SULFATE 4 MG/ML SYRINGE IVP STA (05:47)
[2022-08-07 05:59] LABS: Basophils # (A) 0.1 k/uL (0-0.2); Basophils % (A) 1 %; Eosinophils # (A) 0.3 k/uL (0-0.7); Eosinophils % (A) 3 %; HGB 15.8 gm/dL (11.4-16.0); Lymphocytes # (A) 4.2 k/uL (1.0-4.8); Lymphocytes % (A) 40 %; MCH 30.4 pg (25.0-35.0); MCHC 32.3 g/dL (31.0-37.0); MCV 94.2 fL (80.0-100.0); Monocytes # (A) 0.5 k/uL (0-1.0); Monocytes % (A) 5 %; Neutrophils # (A) 5.4 k/uL (1.3-7.7); Neutrophils % (A) 50 %; Platelet Count 282 k/uL (150-450); RDW 12.7 % (11.5-15.5); WBC 10.7 k/uL (3.8-10.6)
[2022-08-07 06:06] LABS: ALT 38 U/L (4-34); AST 37 U/L (14-36); African American GFR (CKD) >90 (>60 ml/min/1.73 sqM); Albumin 4.4 g/dL (3.5-5.0); Alkaline Phosphatase 78 U/L (38-126); Anion Gap 8 mmol/L; Blood Urea Nitrogen 12 mg/dL (7-17); Calcium 9.8 mg/dL (8.4-10.2); Carbon Dioxide 25 mmol/L (22-30); Chloride 104 mmol/L (98-107); Glucose 272 mg/dL (74-99); Magnesium 1.6 mg/dL (1.6-2.3); Non-African American GFR(CKD) >90 (>60 ml/min/1.73 sqM); Sodium 137 mmol/L (137-145); Total Bilirubin 0.7 mg/dL (0.2-1.3); Total Protein 7.9 g/dL (6.3-8.2)
[2022-08-07 06:17] LABS: Potassium 4.7 mmol/L (3.5-5.1)
[2022-08-07 06:27] LABS: INR 0.9 (<1.2); Partial Thromboplastin Time 23.8 sec (22.0-30.0); Prothrombin Time 9.7 sec (9.0-12.0)
[2022-08-07] MEDS ORDERED: NALOXONE 0.4 MG/ML 1 ML VIAL IV PRN (06:35)
[2022-08-07] MEDS ORDERED: MORPHINE SULFATE 4 MG/ML SYRINGE IV PRN (06:35)
--- NOTE | 2022-08-07 06:44 | ED ---
General Adult HPI - General Chief complaint: Chest Pain Stated complaint: Chest Pain Time Seen by Provider: 08/07/22 05:45 Source: patient Mode of arrival: wheelchair Limitations: no limitations - History of Present Illness Initial comments: This is a 62-year-old female with a reported past medical history including hypertension and previous cardiac stents not on any medication secondary to lack of insurance presents emergency department for left-sided chest pain. The patient stated that she has had left-sided chest pain over the last 1 week that was worsening today. The patient stated throughout the week the chest pain does self resolved however the pain woke her up out of sleep today and was continued and severe over the left side of the chest up to the left jaw and left arm. The patient stated that she has not taken any of her medications as prescribed as she has not had these medications in over 2 years due to insurance issues. The patient herself reported associated diaphoresis without nausea or vomiting. The patient was in mild distress secondary to chest pain on arrival. - Related Data Home Medications Medication Instructions Recorded Confirmed Atorvastatin [Lipitor] 40 mg PO HS 08/04/15 01/02/17 Metoprolol Succinate [Toprol XL] 50 mg PO HS 01/02/17 01/02/17 Previous Rx's Medication Instructions Recorded Aspirin 81 mg PO DAILY #81 chew 01/04/17 Clopidogrel [Plavix] 75 mg PO DAILY #30 tab 01/04/17 Nitroglycerin Sl Tabs [Nitrostat] 0.4 mg SUBLINGUAL Q5M PRN #25 tab 01/04/17 HYDROcodone/APAP 5-325MG [Brusly 1 tab PO Q4HR PRN 3 Days #18 tab 11/09/17 5-325] Tamsulosin HCl [Flomax] 0.4 mg PO DAILY #3 capsule 11/09/17 levoFLOXacin [Levaquin] 750 mg PO DAILY #4 tab 11/09/17 ondansetron HCL [Zofran] 4 mg PO TID PRN #12 tablet 11/09/17 Allergies Allergy/AdvReac Type Severity Reaction Status Date / Time Milk Containing Products Allergy Unknown Verified 08/07/22 05:33 [Dairy] amitriptyline AdvReac Cough Verified 08/07/22 05:33 aspirin AdvReac Nausea & Verified 08/07/22 05:33 Vomiting Review of Systems ROS Statement: Those systems with pertinent positive or pertinent negative responses have been documented in the HPI. ROS Other: All systems not noted in ROS Statement are negative. Past Medical History Past Medical History: Coronary Artery Disease (CAD), Diabetes Mellitus, Hyperlipidemia, Myocardial Infarction (AK) Additional Past Medical History / Comment(s): recent abdominal pain, gas,, bloating, frequent loose stools/AK X 3, hypotension Last Myocardial Infarction Date:: 2010 History of Any Multi-Drug Resistant Organisms: None Reported Past Surgical History: Cholecystectomy, Heart Catheterization With Stent Additional Past Surgical History / Comment(s): COLONOSCOPY, 3 stents Past Anesthesia/Blood Transfusion Reactions: Previous Problems w/ Anesthesia Additional Past Anesthesia/Blood Transfusion Reaction / Comment(s): some kind of problem years ago w/something for dental procedure, not sure what it was called" Date of Last Stent Placement:: 2010 Past Psychological History: Anxiety Smoking Status: Former smoker Past Alcohol Use History: None Reported Past Drug Use History: None Reported - Past Family History Sister(s) Family Medical History: Deep Vein Thrombosis (DVT) Additional Family Medical History / Comment(s): fem bypass Brother(s) Family Medical History: CVA/TIA Mother Family Medical History: Coronary Artery Disease (CAD) Additional Family Medical History / Comment(s): Heart issues Father Additional Family Medical History / Comment(s): heart issues General Exam Limitations: no limitations General appearance: alert, in distress (In mild distress 2/2 chest discomfort) Head exam: Present: atraumatic, normocephalic, normal inspection Eye exam: Present: normal appearance, PERRL Pupils: Present: normal accommodation ENT exam: Present: normal exam, normal oropharynx, mucous membranes moist Neck exam: Present: normal inspection, full ROM Respiratory exam: Present: normal lung sounds bilaterally Cardiovascular Exam: Present: regular rate, normal rhythm, normal heart sounds GI/Abdominal exam: Present: soft, normal bowel sounds Extremities exam: Present: normal inspection, full ROM Back exam: Present: normal inspection, full ROM Neurological exam: Present: alert, oriented X3, CN II-XII intact Psychiatric exam: Present: normal affect, normal mood Skin exam: Present: warm, dry Course Vital Signs 08/07/22 08/07/22 05:33 06:00 Temperature 97.6 F Pulse Rate 18 L 92 Respiratory 109 H 20 Rate Blood Pressure 154/88 143/84 O2 Sat by Pulse 94 L 95 Oximetry EKG Findings - EKG Comments: EKG Findings:: An EKG was obtained and was interpreted by myself showing a rate of 98, WI interval 138, QR mosque 103 and QTC of 394. This EKG showed a normal sinus rhythm with no ST segment elevation or depression noted. Medical Decision Making - Medical Decision Making Was pt. sent in by a medical professional or institution (, ROSANGELA, DYNAMIC ETCHING PROCESSOR, urgent care, hospital, or skilled nursing...) When possible be specific @ -No Did you speak to anyone other than the patient for history (EMS, parent, family, police, friend...)? What history was obtained from this source @ -No Did you review nursing and triage notes (agree or disagree)? Why? @ -I reviewed and agree with nursing and triage notes Were old charts reviewed (outside hosp., previous admission, EMS record, old EKG, old radiological studies, urgent care reports/EKG's, skilled nursing records)? Report findings @ -No old charts were reviewed Differential Diagnosis (chest pain, altered mental status, abdominal pain women, abdominal pain men, vaginal bleeding, weakness, fever, dyspnea, syncope, headache, dizziness, GI bleed, back pain, seizure, CVA, palpatations, mental health)? @ -ACS, pneumonia, pneumothorax EKG interpreted by me (3pts min.). @ -As above X-rays interpreted by me (1pt min.). @ -CXR was obtained but was to pending at this time. CT interpreted by me (1pt min.). @ -None done U/S interpreted by me (1pt. min.). @ -None done What testing was considered but not performed or refused? (CT, X-rays, U/S, labs)? Why? @ -None What meds were considered but not given or refused? Why? @ -None Did you discuss the management of the patient with other professionals (professionals i.e. , ROSANGELA, DYNAMIC ETCHING PROCESSOR, lab, RT, psych nurse, social science analyst, environmental quality analyst, te acher, medical corps officer, ed case manager)? Give summary @ -Yes, Tan Zuluaga from [facility] was contacted regarding placing the patient observation. Was smoking cessation discussed for >3mins.? @ -No Was critical care preformed (if so, how long)? @ -No Were there social determinants of health that impacted care today? How? (Homelessness, low income, unemployed, alcoholism, drug addiction, trans portation, low edu. Level, literacy, decrease access to med. care, penitentiary, rehab)? @ -No Was there de-escalation of care discussed even if they declined (Discuss DNR or withdrawal of care, Hospice)? DNR status @ -No What co-morbidities impacted this encounter? (DM, HTN, Smoking, COPD, CAD, Cancer, CVA, ARF, Chemo, Hep., AIDS, mental health diagnosis, sleep apnea, morbid obesity)? @ -Hypertension, previous cardiac stenting Was patient admitted / discharged? Hospital course, mention meds given and route, prescriptions, significant lab abnormalities, going to OR and other pertinent info. @ -The patient was seen and evaluated emergency department. Physical exam, the patient was resting in bed in mild distress secondary to chest pain. Vital signs admission were stable. Vital signs were also obtained and were within normal limits. Due to the patient's typical chest pain the setting of multiple risk factors including medical noncompliance, the patient did receive morphine for pain control. The patient will be placed observation for further workup and evaluation by cardiology. The patient was agreeable to this and all of her questions were answered reportedly. The patient was placed in observation. Undiagnosed new problem with uncertain prognosis? @ -No Drug Therapy requiring intensive monitoring for toxicity (Heparin, Nitro, Insulin, Cardizem)? @ -No Were any procedures done? @ -No Diagnosis/symptom? @ -Chest pain, rule out ACS Acute, or Chronic, or Acute on Chronic? @ -Acute Uncomplicated (without systemic symptoms) or Complicated (systemic symptoms)? @ -Complicated Side effects of treatment? @ -No Exacerbation, Progression, or Severe Exacerbation? @ -No Poses a threat to life or bodily function? How? (Chest pain, [place], [place], pneumonia, PE, COPD, DKA, ARF, appy, cholecystitis, CVA, Diverticulitis, Homicidal, Suicidal, threat to staff... and all critical care pts) @ -Yes, worsening chest pain and ACS can lead to permanent damage and possible . - Lab Data Result diagrams: 08/07/22 05:43 08/07/22 05:43 Lab Results 08/07/22 08/07/22 08/07/22 Range/Units 05:43 05:43 05:43 WBC 10.7 H (3.8-10.6) k/uL RBC 5.20 (3.80-5.40) m/uL Hgb 15.8 (11.4-16.0) gm/dL Hct 49.0 H (34.0-46.0) % MCV 94.2 (80.0-100.0) fL MCH 30.4 (25.0-35.0) pg MCHC 32.3 (31.0-37.0) g/dL RDW 12.7 (11.5-15.5) % Plt Count 282 (150-450) k/uL MPV 8.0 Neutrophils % 50 % Lymphocytes % 40 % Monocytes % 5 % Eosinophils % 3 % Basophils % 1 % Neutrophils # 5.4 (1.3-7.7) k/uL Lymphocytes # 4.2 (1.0-4.8) k/uL Monocytes # 0.5 (0-1.0) k/uL Eosinophils # 0.3 (0-0.7) k/uL Basophils # 0.1 (0-0.2) k/uL PT 9.7 (9.0-12.0) sec INR 0.9 (<1.2) APTT 23.8 (22.0-30.0) sec Sodium 137 (137-145) mmol/L Potassium 4.7 (3.5-5.1) mmol/L Chloride 104 (98-107) mmol/L Carbon Dioxide 25 (22-30) mmol/L Anion Gap 8 mmol/L BUN 12 (7-17) mg/dL Creatinine 0.41 L (0.52-1.04) mg/dL Est GFR (CKD-EPI)AfAm >90 (>60 ml/min/1.73 sqM) Est GFR (CKD-EPI)NonAf >90 (>60 ml/min/1.73 sqM) Glucose 272 H (74-99) mg/dL Calcium 9.8 (8.4-10.2) mg/dL Magnesium 1.6 (1.6-2.3) mg/dL Total Bilirubin 0.7 (0.2-1.3) mg/dL AST 37 H (14-36) U/L ALT 38 H (4-34) U/L Alkaline Phosphatase 78 (38-126) U/L Troponin I (0.000-0.034) ng/mL Total Protein 7.9 (6.3-8.2) g/dL Albumin 4.4 (3.5-5.0) g/dL 08/07/22 Range/Units 05:43 WBC (3.8-10.6) k/uL RBC (3.80-5.40) m/uL Hgb (11.4-16.0) gm/dL Hct (34.0-46.0) % MCV (80.0-100.0) fL MCH (25.0-35.0) pg MCHC (31.0-37.0) g/dL RDW (11.5-15.5) % Plt Count (150-450) k/uL MPV Neutrophils % % Lymphocytes % % Monocytes % % Eosinophils % % Basophils % % Neutrophils # (1.3-7.7) k/uL Lymphocytes # (1.0-4.8) k/uL Monocytes # (0-1.0) k/uL Eosinophils # (0-0.7) k/uL Basophils # (0-0.2) k/uL PT (9.0-12.0) sec INR (<1.2) APTT (22.0-30.0) sec Sodium (137-145) mmol/L Potassium (3.5-5.1) mmol/L Chloride (98-107) mmol/L Carbon Dioxide (22-30) mmol/L Anion Gap mmol/L BUN (7-17) mg/dL Creatinine (0.52-1.04) mg/dL Est GFR (CKD-EPI)AfAm (>60 ml/min/1.73 sqM) Est GFR (CKD-EPI)NonAf (>60 ml/min/1.73 sqM) Glucose (74-99) mg/dL Calcium (8.4-10.2) mg/dL Magnesium (1.6-2.3) mg/dL Total Bilirubin (0.2-1.3) mg/dL AST (14-36) U/L ALT (4-34) U/L Alkaline Phosphatase (38-126) U/L Troponin I <0.012 (0.000-0.034) ng/mL Total Protein (6.3-8.2) g/dL Albumin (3.5-5.0) g/dL Disposition Clinical Impression: Chest pain Disposition: ADMITTED IP TO THIS [facility] Condition: Stable Instructions (If sedation given, give patient instructions): Chest Pain (ED) Is patient prescribed a controlled substance at d/c from ED?: No Referrals: None,Stated [Primary Care Provider] - 1-2 days Time of Disposition: 06:00 Decision to Admit Reason: Admit from EC Decision Date: 08/07/22 Decision Time: 06:00
[2022-08-07] MEDS ORDERED: HEPARIN SODIUM,PORCINE 2,500 UNIT in SODIUM CHLORIDE 0.9% 250 ML IRRIGATION PRN (07:00)
[2022-08-07] MEDS ORDERED: HEPARIN SODIUM,PORCINE 10,000 UNIT in SODIUM CHLORIDE 0.9% 1,000 ML IRRIGATION PRN (07:00)
[2022-08-07] MEDS: SODIUM CHLORIDE 0.9% 1,000 ML IV SCH ×2 (07:16→21:13)
--- NOTE | 2022-08-07 07:18 | XR ---
EXAMINATION TYPE: XR chest 2V DATE OF EXAM: 08/07/2022 COMPARISON: 01/02/2017 HISTORY: 62-year-old female with chest pain TECHNIQUE: PA and lateral views FINDINGS: Heart normal size. Aorta and pulmonary vasculature are within normal limits. Coronary stent noted on the right side of the heart. Mild hyperinflation. No consolidation or pleural effusion. IMPRESSION: Suspect underlying COPD. Right-sided coronary vessel stent. No acute process seen.
[2022-08-07] MEDS ORDERED: DEXTROSE 50% SYRINGE 50 ML IVP PRN ×2 (08:32)
[2022-08-07] MEDS ORDERED: ALPRAZolam 0.5 MG TAB PO PRN (08:58)
[2022-08-07] MEDS ORDERED: ATORVASTATIN 80 MG TAB PO STA (08:58)
[2022-08-07] MEDS ORDERED: NITROGLYCERIN SL TABS 0.4 MG TAB SUBLINGUAL PRN (08:58)
[2022-08-07] MEDS ORDERED: ASPIRIN 325 MG TAB PO STA (08:58)
[2022-08-07] MEDS ORDERED: ALPRAZolam 0.25 MG TAB PO PRN (08:58)
[2022-08-07] MEDS: ASPIRIN 81 MG PO SCH (09:25)
[2022-08-07] MEDS: ATORVASTATIN 40 MG TAB PO SCH (09:27)
--- NOTE | 2022-08-07 09:48 | P.CRDCN ---
History of Present Illness Consult date: 08/07/22 Consult reason: chest pain (r/o ACS) History of present illness: History of present illness: This is a 62 year old female patient of Dr. Jimenez with past medical history of coronary artery disease with 3 stents in the RCA most recent in 2016, dy slipidemia, history of tobacco use quit in January 2022. Patient has not follow-up in the office since May 2020. She states she has run out of her medications for a couple years and has not been taking any except for aspirin. She states it was an insurance issue. We have been asked to evaluate the patient for chest pain. Patient complains of chest pain in the mid chest area that radiates up into the neck and jaw. Woke her up from sleep. She has been having this type of pain on and off for the past week and usually goes away on its own but this time it did not. She took a nitroglycerin and it seemed to be better. She also had sweats, and difficulty in breathing. No nausea. She has chronic dizziness. She has chronic cough due to COPD. Her pain is similar to that in 2004 with ME. She denies any alcohol use. EKG sinus rhythm with no acute ST changes Chest x-ray: Suspect underlying COPD, right-sided coronary vessel stent. No acute process. WBC 10.7, hemoglobin 15.8, platelet count 282. INR 0.9. Electrolytes are normal with potassium of 4.7, BUN 12 and creatinine 0.41. Blood sugar 272. AST 37, ALT 38. Troponin negative 2. Home cardiac medications: Aspirin 81 mg daily Echocardiogram 2018 EF 45%, mild MR, hypokinesis of the inferior wall base to mid wall. Review Of Systems: At the time of my evaluation: Constitutional: No fever, no chills. No weakness, fatigue or lethargy. EENT: No headache. No dizziness. Lungs: No shortness of breath, reports cough, reports sputum production. No wheezing. Cardiovascular: Reports chest pain, no lower extremity edema. No palpitations. No paroxysmal nocturnal dyspnea. No orthopnea. Reports chronic lightheadedness or dizziness. No syncopal episodes. Abdominal: No abdominal pain. No nausea, vomiting. No diarrhea. No constipation. No bloody or tarry stools. Genitourinary: No dysuria.. No urinary retention. Musculoskeletal: No myalgias. No muscle weakness, no frequent falls. No back pain. No neck pain. Integumentary: No wounds. No rash. No unusual bruising. Neurologic: No aphasia. No facial droop. No change in mentation. No head injury. No headache. Physical examination: Gen: This is a 62-year-old female. She is resting on ER stretcher. She appears to be in no acute distress at rest. VS: reviewed HEENT: Head is atraumatic, normocephalic. Pupils equal, round. Sclerae is anict kyleigh. NECK: Supple. No JVD. No carotid bruit. LUNGS: Coarse breath sounds bilaterally. No intercostal retractions. HEART: Regular rate and rhythm. No murmur. ABDOMEN: Soft No tenderness. EXTREMITIES: No pedal edema. No calf tenderness. Dorsalis pedis 1+ bilaterally. NEUROLOGICAL: Patient is awake, alert and oriented x3. Assessment: Chest pain, rule out acute coronary syndrome History of coronary artery disease with RCA stent 3 most recently to the distal RCA in 2016 Dyslipidemia COPD Remote history of tobacco use, quit in January 2022 Plan: Start patient on aspirin, Lipitor, Lopressor Schedule patient for cardiac catheterization today with Dr. Jimenez Obtain TSH, A1c, lipid panel Obtain 2-D echocardiogram and Doppler study to assess cardiac structure and function Further recommendations to follow based upon clinical course Thank you kindly for this consultation. Nurse practitioner note has been reviewed, I agree with documented findings and plan of care. Patient was seen and examined. Past Medical History Past Medical History: Coronary Artery Disease (CAD), Diabetes Mellitus, Hyperlipidemia, Myocardial Infarction (ME) Additional Past Medical History / Comment(s): recent abdominal pain, gas,, bloating, frequent loose stools/ME X 3, hypotension Last Myocardial Infarction Date:: 2010 History of Any Multi-Drug Resistant Organisms: None Reported Past Surgical History: Cholecystectomy, Heart Catheterization With Stent Additional Past Surgical History / Comment(s): COLONOSCOPY, 3 stents Past Anesthesia/Blood Transfusion Reactions: Previous Problems w/ Anesthesia Additional Past Anesthesia/Blood Transfusion Reaction / Comment(s): some kind of problem years ago w/something for dental procedure, not sure what it was called" Date of Last Stent Placement:: 2010 Past Psychological History: Anxiety Smoking Status: Former smoker Past Alcohol Use History: None Reported Past Drug Use History: None Reported - Past Family History Sister(s) Family Medical History: Deep Vein Thrombosis (DVT) Additional Family Medical History / Comment(s): fem bypass Brother(s) Family Medical History: CVA/TIA Mother Family Medical History: Coronary Artery Disease (CAD) Additional Family Medical History / Comment(s): Heart issues Father Additional Family Medical History / Comment(s): heart issues Medications and Allergies Home Medications Medication Instructions Recorded Confirmed Type Aspirin EC [Ecotrin] 325 mg PO HS 08/07/22 08/07/22 History Allergies Allergy/AdvReac Type Severity Reaction Status Date / Time Milk Containing Products Allergy Nausea & Verified 08/07/22 08:11 [Dairy] Vomiting & Diarrhea amitriptyline AdvReac Cough Verified 08/07/22 08:11 Physical Exam Vitals: Vital Signs Temp Pulse Resp BP Pulse Ox 08/07/22 06:00 92 20 143/84 95 08/07/22 05:33 97.6 F 109 H 18 154/88 94 L Intake and Output 08/06/22 08/07/22 08/07/22 22:59 06:59 14:59 Other: Weight 68.039 kg Results 08/07/22 05:43 08/07/22 05:43 Cardiac Enzymes 08/07/22 08/07/22 Range/Units 05:43 05:43 AST 37 H (14-36) U/L Troponin I <0.012 (0.000-0.034) ng/mL Coagulation 08/07/22 Range/Units 05:43 PT 9.7 (9.0-12.0) sec APTT 23.8 (22.0-30.0) sec CBC 08/07/22 Range/Units 05:43 WBC 10.7 H (3.8-10.6) k/uL RBC 5.20 (3.80-5.40) m/uL Hgb 15.8 (11.4-16.0) gm/dL Hct 49.0 H (34.0-46.0) % Plt Count 282 (150-450) k/uL Comprehensive Metabolic Panel 08/07/22 Range/Units 05:43 Sodium 137 (137-145) mmol/L Potassium 4.7 (3.5-5.1) mmol/L Chloride 104 (98-107) mmol/L Carbon Dioxide 25 (22-30) mmol/L BUN 12 (7-17) mg/dL Creatinine 0.41 L (0.52-1.04) mg/dL Glucose 272 H (74-99) mg/dL Calcium 9.8 (8.4-10.2) mg/dL AST 37 H (14-36) U/L ALT 38 H (4-34) U/L Alkaline Phosphatase 78 (38-126) U/L Total Protein 7.9 (6.3-8.2) g/dL Albumin 4.4 (3.5-5.0) g/dL Current Medications Generic Name Dose Route Start Last Admin Trade Name Freq PRN Reason Stop Dose Admin Aspirin 81 mg 08/07/22 09:00 Aspirin 81 Mg PO DAILY [facility] Atorvastatin Calcium 40 mg 08/07/22 09:00 Atorvastatin 40 Mg Tab PO DAILY [facility] Sodium Chloride 1,000 mls @ 75 mls/hr 08/07/22 06:45 08/07/22 07:16 Saline 0.9% IV 75 mls/hr .[id number] JULIA Administration Metoprolol Tartrate 12.5 mg 08/07/22 09:00 Metoprolol Tartrate 12.5 Mg Tab PO BID JULIA Morphine Sulfate 4 mg 08/07/22 06:35 Morphine Sulfate 4 Mg/Ml Syringe IV Q4HR PRN Severe Pain (Scale 7 to 10) Naloxone HCl 0.2 mg 08/07/22 06:35 Naloxone 0.4 Mg/Ml 1 Ml Vial IV Q2M PRN Opioid Reversal Intake and Output 08/06/22 08/07/22 08/07/22 22:59 06:59 14:59 Other: Weight 68.039 kg 08/07/22 05:43 08/07/22 05:43
[2022-08-07] MEDS: METOPROLOL TARTRATE 12.5 MG TAB PO SCH ×2 (10:39→21:13)
--- NOTE | 2022-08-07 10:49 | P.HPIM ---
History of Present Illness 62-year-old female came in with compensative prior chest pain radiating to the jaw moderate severity pressure-like sensation without any associated diaphoresis or lightheadedness aspirin is not pleuritic not associated with food. Patient does have chronic cough. Patient had myocardial infarction 2003 patient had cardiac catheterization and stenting. Patient quit smoking in January 2022. Patient does take aspirin but has not been taking any of her other medications. Patient doesn't have a PCP. Patient does have slight leukocytosis. Patient did take nitroglycerin which helped with her pain. Patient had some acute ST de pressions in sinus rhythm on EKG troponins are negative. REVIEW OF SYSTEMS: CONSTITUTIONAL: No fever, no malaise, no fatigue. HEENT: No recent visual problems or hearing problems. Denied any sore throat. CARDIOVASCULAR: No orthopnea, PND, no palpitations, no syncope. PULMONARY: No shortness of breath, no cough, no hemoptysis. GASTROINTESTINAL: No diarrhea, no nausea, no vomiting, no abdominal pain. NEUROLOGICAL: No headaches, no weakness, no numbness. HEMATOLOGICAL: Denies any bleeding or petechiae. GENITOURINARY: Denies any burning micturition, frequency, or urgency. MUSCULOSKELETAL/RHEUMATOLOGICAL: Denies any joint pain, swelling, or any muscle pain. ENDOCRINE: Denies any polyuria or polydipsia. The rest of the 14-point review of systems is negative. PHYSICAL EXAMINATION: GENERAL: The patient is alert and oriented x3, not in any acute distress. Well developed, well nourished. HEENT: Pupils are round and equally reacting to light. EOMI. No scleral icterus. No conjunctival pallor. Normocephalic, atraumatic. No pharyngeal erythema. No thyromegaly. CARDIOVASCULAR: S1 and S2 present. No murmurs, rubs, or gallops. PULMONARY: Chest is clear to auscultation, no wheezing or crackles. ABDOMEN: Soft, nontender, nondistended, normoactive bowel sounds. No palpable or ganomegaly. MUSCULOSKELETAL: No joint swelling or deformity. EXTREMITIES: No cyanosis, clubbing, or pedal edema. NEUROLOGICAL: Gross neurological examination did not reveal any focal deficits. SKIN: No rashes. Assessment and plan 1 chest pain we will rule out acute coronary syndromes: Etiology will evaluate the patient and creative/art director planning on cardiac catheterization. Lipase panel will be obtained -Dyslipidemia -Coronary artery disease stents in the past noncompliant with medications lisa rico was provided plan-COPD without any acute exacerbation -Type 2 diabetes mellitus most probably with elevated blood sugars will obtain hemoglobin A1c, patient will be started on sliding scale insulin DVT prophylaxis: Early ambulation Past Medical History Past Medical History: Coronary Artery Disease (CAD), Diabetes Mellitus, Hyperlipidemia, Myocardial Infarction (RI) Additional Past Medical History / Comment(s): recent abdominal pain, gas,, bloating, frequent loose stools/RI X 3, hypotension Last Myocardial Infarction Date:: 2010 History of Any Multi-Drug Resistant Organisms: None Reported Past Surgical History: Cholecystectomy, Heart Catheterization With Stent Additional Past Surgical History / Comment(s): COLONOSCOPY, 3 stents Past Anesthesia/Blood Transfusion Reactions: Previous Problems w/ Anesthesia Additional Past Anesthesia/Blood Transfusion Reaction / Comment(s): some kind of problem years ago w/something for dental procedure, not sure what it was called" Date of Last Stent Placement:: 2010 Past Psychological History: Anxiety Smoking Status: Former smoker Past Alcohol Use History: None Reported Past Drug Use History: None Reported - Past Family History Sister(s) Family Medical History: Deep Vein Thrombosis (DVT) Additional Family Medical History / Comment(s): fem bypass Brother(s) Family Medical History: CVA/TIA Mother Family Medical History: Coronary Artery Disease (CAD) Additional Family Medical History / Comment(s): Heart issues Father Additional Family Medical History / Comment(s): heart issues Medications and Allergies Home Medications Medication Instructions Recorded Confirmed Type Aspirin EC [Ecotrin] 325 mg PO HS 08/07/22 08/07/22 History Allergies Allergy/AdvReac Type Severity Reaction Status Date / Time Milk Containing Products Allergy Nausea & Verified 08/07/22 08:11 [Dairy] Vomiting & Diarrhea amitriptyline AdvReac Cough Verified 08/07/22 08:11 Physical Exam Vitals: Vital Signs Temp Pulse Resp BP Pulse Ox 08/07/22 10:42 89 18 132/76 94 L 08/07/22 08:47 98.1 F 90 18 129/68 94 L 08/07/22 06:00 92 20 143/84 95 08/07/22 05:33 97.6 F 109 H 18 154/88 94 L Intake and Output 08/06/22 08/07/22 08/07/22 22:59 06:59 14:59 Other: Weight 68.039 kg Results CBC & Chem 7: 08/07/22 05:43 08/07/22 05:43 Labs: Abnormal Lab Results - Last 24 Hours (Table) 08/07/22 08/07/22 Range/Units 05:43 05:43 WBC 10.7 H (3.8-10.6) k/uL Hct 49.0 H (34.0-46.0) % Creatinine 0.41 L (0.52-1.04) mg/dL Glucose 272 H (74-99) mg/dL AST 37 H (14-36) U/L ALT 38 H (4-34) U/L
[2022-08-07] MEDS: INSULIN ASPART (NovoLOG) 100 UNIT/ML VIAL SQ SCH ×4 (11:35→21:13)
[2022-08-07 11:59] LABS: Chol/HDL Ratio 4.67 Ratio; LDL Cholesterol,Calculated 151.4 mg/dL (0.0-131.0)
[2022-08-07 12:12] LABS: Glucose,Whole Blood 195 mg/dL (70-110)
[2022-08-07 18:13] LABS: Glucose,Whole Blood 251 mg/dL (70-110)
[2022-08-07 20:33] LABS: Glucose,Whole Blood 235 mg/dL (70-110)
[2022-08-08 06:07] LABS: Glucose,Whole Blood 222 mg/dL (70-110)
[2022-08-08] MEDS: INSULIN ASPART (NovoLOG) 100 UNIT/ML VIAL SQ SCH ×2 (06:25→12:44)
[2022-08-08 07:37] VITALS: RESP 16
[2022-08-08] MEDS: ASPIRIN 81 MG PO SCH (07:55)
[2022-08-08] MEDS: METOPROLOL TARTRATE 12.5 MG TAB PO SCH (07:55)
[2022-08-08] MEDS: ATORVASTATIN 40 MG TAB PO SCH (07:55)
[2022-08-08] MEDS ORDERED: VERAPAMIL 2.5 MG/ML 2 ML AMP ONE (08:41)
[2022-08-08] MEDS ORDERED: HEPARIN SODIUM 1,000 UN/ML (10ML VL) ONE (08:54)
[2022-08-08] MEDS ORDERED: fentaNYL (PF) 50 MCG/ML 2 ML AMP ONE (08:54)
[2022-08-08] MEDS ORDERED: IV FLUID CONTINUATION 300 ML IV ONE (08:57)
[2022-08-08] MEDS ORDERED: fentaNYL (PF) 50 MCG/ML 2 ML AMP IV ONE (09:21)
[2022-08-08] MEDS ORDERED: LIDOCAINE 1% INJ 10MG/ML (5 ML VIAL-PF) SQ ONE (09:22)
[2022-08-08] MEDS ORDERED: VERAPAMIL SYRINGE (5 MG/10 ML) INTRAARTER ONE (09:27)
[2022-08-08] MEDS ORDERED: MIDAZOLAM 2 MG/2 ML VIAL IV ONE (09:30)
[2022-08-08] MEDS ORDERED: HEPARIN SODIUM 1,000 UN/ML (10ML VL) IV ONE (09:32)
[2022-08-08] MEDS ORDERED: IOPAMIDOL-370 100ML BTL INJ ONE (09:41)
[2022-08-08] MEDS ORDERED: RX INFO: IV CONTRAST WAS GIVEN 1 EACH MISC MISCELLANE PRN (09:58)
[2022-08-08] MEDS ORDERED: SODIUM CHLORIDE 0.9% 1,000 ML IV SCH (10:00)
[2022-08-08] MEDS ORDERED: ISOSORBIDE MONONITRATE ER 30 MG TAB.ER.24H PO SCH (10:00)
--- NOTE | 2022-08-08 10:06 | P.CARDCATH ---
Date of Procedure: 08/08/22 Description of Procedure: Cardiac Catheterization: The patient is a 62-year-old female with a history of coronary disease, status post stenting of the RCA in 2004, 2005, 2010 and 2017, history of hyperlipidemia and chronic tobacco use who has stopped all her medications and presented with symptoms of chest discomfort but no evidence of myocardial infarction. Recommendations were made regarding cardiac catheterization, the risks and the complications were discussed with the patient who is in full understanding and agreement. Procedure Description: Patient was brought to bolt labeler in fasting semi-sedated state after receiving Fentanyl and Benadryl achieiving moderate conscious sedated state. Using Xy locaine Anesthesia and Seldinger technique, a 6-Icelandic sheath was introduced in the right radial artery . Subsequently, selective coronary angiography was performed using a 5-Icelandic 3.5 bend Herminia catheter. Multiple views of the coronary artery including hemiaxial views were obtained. The 5-Icelandic pigtail catheter was used to cross the aortic valve and LVEDP was calculated. Following that, catheter and sheath were removed. Hemostasis was obtained with deployment of TR band . There was no immediate complication. Patient was returned to room in stable condition. Of note, the patient received a total of 3500 units of intravenous heparin as well as intra-arterial verapamil. Findings: Left main: This is a large-size vessel, bifurcating into LAD and circumflex, left main has no high-grade stenosis LAD: This is a large-size vessel, reaching to the apex, giving rise to one moderately sized diagonal branch. The LAD in the mid segment has intimal disease of 30-40% with no high-grade stenosis Left circumflex: This is a nondominant vessel, giving rise to a large obtuse marginal branch. The mid left circumflex has intimal disease of 30% with no high-grade stenosis RCA: This is a dominant vessel, stented from the proximal to the distal segment. The mid segment of the RCA has about 60% in-stent restenosis of the vessel is totally occluded distally with no antegrade flow. There is retrograde flow through collaterals to the PDA and the PLV reaching the bifurcation segment. Left Ventriculogram: Not performed Hemodynamics: There was no gradient across the aortic valve , LVEDP was 12-16 mmHg Conclusion: 1. Chronically occluded distal RCA with long stents in the proximal mid and distal RCA 2. Collaterals from the left cornea system to the right PDA and PLV 3. Mild to moderate disease in the left circumflex and the LAD 4. Right dominance Recommendations: The patient will continue on medical therapy with aggressive coronary risk modifications. I would maximize her medical therapy and if she continues to have symptoms then she will be admitted to undergo attempted MANAGER CLUB intervention on her RCA. The findings and the recommendations were discussed with the patient and the family and they were in full understanding and agreement. Duration of sedation is 23 minutes.
[2022-08-08] MEDS: SODIUM CHLORIDE 0.9% 1,000 ML IV SCH ×2 (10:57→11:28)
[2022-08-08 11:22] LABS: Glucose,Whole Blood 220 mg/dL (70-110)
--- NOTE | 2022-08-08 11:35 | CA ---
Transthoracic Echo Report Name: Rose Hopson Age: 62 Gender: F : 1960 Exam Date: 08/08/2022 08:26 Exam Location: [facility] Ht (in): 61 Wt (lb): 150 Ordering Physician: Brittany Avila Attending/Referring Phys: [id number], Austin Cvt Rn Johanny Perdue [facility] Procedure CPT: Indications: LVF Cardiac Hx: Technical Quality: Fair Contrast 1: Total Dose (mL): Contrast 2: Total Dose (mL): MEASUREMENTS (Male / Female) Normal Values 2D ECHO LV Diastolic Diameter PLAX 3.9 cm 4.2 - 5.9 / 3.9 - 5.3 cm LV Systolic Diameter PLAX 3.2 cm IVS Diastolic Thickness 0.8 cm 0.6 - 1.0 / 0.6 - 0.9 cm LVPW Diastolic Thickness 0.9 cm 0.6 - 1.0 / 0.6 - 0.9 cm LV Relative Wall Thickness 0.4 M-MODE Aortic Root Diameter MM 3.0 cm LA Systolic Diameter MM 3.4 cm LA Ao Ratio MM 1.1 AV Cusp Separation MM 1.6 cm DOPPLER AV Peak Velocity 93.1 cm/s AV Peak Gradient 3.5 mmHg AV Mean Velocity 59.9 cm/s AV Mean Gradient 1.8 mmHg AV Velocity Time Integral 16.6 cm LVOT Peak Velocity 91.8 cm/s LVOT Peak Gradient 3.4 mmHg LVOT Velocity Time Integral 15.8 cm Mitral E Point Velocity 43.9 cm/s Mitral A Point Velocity 74.5 cm/s Mitral E to A Ratio 0.6 MV Deceleration Time 152.8 ms LV E' Lateral Velocity 8.2 cm/s Mitral E to LV E' Lateral Ratio 5.3 LV E' Septal Velocity 6.0 cm/s Mitral E to LV E' Septal Ratio 7.3 FINDINGS Left Ventricle The ejection fraction is visually estimated at 50-55%. Inferobasal and inferoseptal hypokinesis.left ventricular cavity size normal. Right Ventricle The right ventricle is normal in size and function. Right Atrium The right atrium is normal in size. Left Atrium The left atrium is normal in size. Mitral Valve Structurally normal mitral valve without significant stenosis or prolapse. There is mild mitral regurgitation. Aortic Valve Structurally normal aortic valve without significant sclerosis or stenosis. There is no aortic regurgitation. Tricuspid Valve Structurally normal tricuspid valve without significant stenosis. Pulmonic Valve Pulmonic valve not well visualized. There is no pulmonic regurgitation. Pericardium Normal pericardium without effusion. Aorta Normal aortic root dimension. CONCLUSIONS Technically difficult study. 1. Left ventricle systolic function is borderline normal with segmental wall motion abnormality 2. Mild mitral regurgitation Previewed by: Dr. Jose Jimenez MD (Electronically Signed) Final Date: 08 August 2022 11:34
[2022-08-08 12:07] VITALS: BMI 28.3
[2022-08-08] MEDS ORDERED: INSULIN ASPART (NovoLOG) 100 UNIT/ML VIAL SQ SCH (12:30)
[2022-08-08 14:14] VITALS: TEMP 98.1
[2022-08-08 14:55] VITALS: BP 103/66; PULSE 80
[2022-08-08] MEDS ORDERED: METOPROLOL TARTRATE 25 MG TAB PO SCH (21:00)
[2022-08-08] MEDS ORDERED: INSULIN DETEMIR (LEVEMIR) 100 UNIT/ML SYR SQ SCH (21:00)
--- NOTE | 2022-08-09 00:48 | P.DS ---
Providers Date of admission: 08/07/22 06:35 Attending physician: Jack Jean Baptiste Consults: 08/07/22 06:35 Consult Physician Routine Consulting Provider: [facility] Consult Reason/Comments: Chest pain, r/o ACS Do you want consulting provider notified?: Yes, Notify in am Primary care physician: Stated None Hospital Course: Final Diagnosis -Chest pain,rule out acute coronary syndromes cath reveals -Angina -Dyslipidemia -Coronary artery disease stents in the past noncompliant with medications counseling was provided -COPD without any acute exacerbation -Type 2 diabetes mellitus uncontrolled hgb a1c 10.2 -Medical noncompliance Full Code Discharge Disposition Patient is stable for discharge home. Recommend close follow up with cardiology and recommend patient to establish care with a primary provider. Patient is given glucometer on discharge to check blood glucose daily and keep log for follow up. Patient recommended for aggressive risk factor modification including diet and life style changes this is discussed with patient in detail. Patient discharged on glipizide twice a day and further adjustments can be made on follow up. Cardiology recommending repeat catheterization and RCA stent if patient continues to have symptoms. Hospital Course This is a 62-year-old female came in with compensative prior chest pain radiating to the jaw moderate severity pressure-like sensation without any associated diaphoresis or lightheadedness aspirin is not pleuritic not associated with food. Patient does have chronic cough. Patient had myocardial infarction 2003 patient had cardiac catheterization and stenting. Patient quit smoking in January 2022. Patient does take aspirin but has not been taking any of her other medications. Patient doesn't have a PCP. Patient does have slight leukocytosis. Patient did take nitroglycerin which helped with her pain. Patient had some acute ST depressions in sinus rhythm on EKG troponins are negative. Patient was admitted to the hospital with cardiology consultation. Taken to the field laboratory operator and has evidence of chronic occlusion distal RCA with long stents in the proximal and distal RCA. Collaterals from the left cornea system to the right PDA and PLV, mild to moderate disease in the left circumflex and LAD. Right dominance. Echocardiogram reveals EF 50-55% with segmental wall motion abnormality, mild mitral regurgitation. Lipid panel completed with triglycerides of 123, cholesterol 224, LDL 151 and HDL 48.0. TSH 1.320, AST/ALT mildly elevated at 37/38. Patient has been started on aspirin daily, metoprolol 25 mg twice a day, imdur 30 mg daily, atorvastatin 40 mg daily. Additionally patient has history of hyperglycemia was told in the past she is at risk for diabetes. Blood glucose on admission elevated 270s, hemoglobin A1C of 10.2. Patient has been provided glucometer and instructed to monitor blood glucose. Started on glipizide twice a day. Patient has been ambulating without difficulty with no further reports of chest pain, no shortness of breath, no dizziness or lightheadedness. Alert x 3 focal neurological exam is negative. S1 S2 auscultated, abdomen is soft and nontender. Patient is discharged home with the above mentioned recommendations. Please see medication reconciliation for a list of current medication. Thank you for allowing us to participate in the care of this patient. The impression and plan of care has been dictated by Darya Wilkes, Nurse Practitioner as directed. Dr. Cynthia MD I have performed a history and physical examination and medical decision making of this patient, discussed the same with the dictator, and agree with the dictators assessment and plan as written, documented as a scribe. Based on total visit time, I have performed more than 50% of this visit. Patient Condition at Discharge: Stable Plan - Discharge Summary Discharge Rx Participant: No New Discharge Prescriptions: New Aspirin 81 mg PO DAILY #30 tab glipiZIDE [Glucotrol] 5 mg PO AC-BID #60 tab Metoprolol Tartrate [Lopressor] 25 mg PO BID #60 tab Isosorbide Mononitrate ER [Imdur] 30 mg PO DAILY #30 tab Atorvastatin [Lipitor] 40 mg PO DAILY #30 tab Famotidine [Pepcid] 20 mg PO DAILY #30 tablet Discontinued Aspirin EC [Ecotrin] 325 mg PO HS Discharge Medication List Aspirin 81 mg PO DAILY #30 tab 08/08/22 [Rx] Atorvastatin [Lipitor] 40 mg PO DAILY #30 tab 08/08/22 [Rx] Famotidine [Pepcid] 20 mg PO DAILY #30 tablet 08/08/22 [Rx] Isosorbide Mononitrate ER [Imdur] 30 mg PO DAILY #30 tab 08/08/22 [Rx] Metoprolol Tartrate [Lopressor] 25 mg PO BID #60 tab 08/08/22 [Rx] glipiZIDE [Glucotrol] 5 mg PO AC-BID #60 tab 06/14/23 [Rx] Follow up Appointment(s)/Referral(s): Jose Jimenez MD [STAFF PHYSICIAN] - 2 Weeks (Office will call with appointment time and date.) None,Stated [Primary Care Provider] - 1-2 days Ambulatory/Diagnostic Orders: ALT [LAB.AMB] Location: None Selected AST [LAB.AMB] Time Frame: 3 Days, Location: None Selected Basic Metabolic Panel [LAB.AMB] Time Frame: 3 Days, Location: None Selected Patient Instructions/Handouts: Chest Pain (ED), Meal Planning with the Plate Method (DC), Diabetes and Nutrition (DC) Activity/Diet/Wound Care/Special Instructions: Check blood glucose daily and keep log for follow up with primary provider Need to establish care with a PCP Follow up cardiology in 1 -2 weeks on discharge....CARDIOLOGY WILL CALL PT FOR RECHECK APPT Monitor blood pressure and keep log for follow up with cardiology. NO FLEXING AT THE WRIST OR LIFTING ANYTHING HEAVIER THAN 5 POUNDS FOR 5 DAYS REMOVE ANY DRESSING OVER PUNCTURE SITE IN 24HRS AND LEAVE OPEN TO AIR DO NOT SUBMERGE WRIST IN WATER FOR 3 DAYS IF SITE BLEEDS, HOLD PRESSURE FOR 10MIN IF DOESN'T SUBSIDE RETURN TO ER BY EMS OR HAVING SOMEONE ELSE DRIVE YOU TO ER Discharge/Stand Alone Forms: Area PCPs Discharge Disposition: HOME SELF-CARE
== END 2022-08-08 18:20 | disposition home or self-care (01) ==
LOC: EC 05:29 → 6NMEDSUR 06:35
PROVIDERS: ADMIT Hospitalist; ATTEND Hospitalist
DX: R07.89 Other chest pain (principal); E78.5 Hyperlipidemia, unspecified; I25.10 Atherosclerotic heart disease of native coronary artery without angina pectoris; I10 Essential (primary) hypertension; E11.65 Type 2 diabetes mellitus with hyperglycemia; F41.9 Anxiety disorder, unspecified; J44.9 Chronic obstructive pulmonary disease, unspecified; I25.2 Old myocardial infarction; Z87.891 Personal history of nicotine dependence; Z91.148 Patient's other noncompliance with medication regimen for other reason; Z95.5 Presence of coronary angioplasty implant and graft; Z79.899 Other long term (current) drug therapy; Z79.82 Long term (current) use of aspirin; Z79.02 Long term (current) use of antithrombotics/antiplatelets; Z88.6 Allergy status to analgesic agent
CPT/HCPCS: 96372 ×3; 96374; 99285; 36415; 93005; 93306; 93458; 83880; 80061; 80053; 84443; 83735; 84484; 85025; 85610; 85730; 83036; 71046; G0378 ×2; C1769 ×2; C1894; J2250; J2270; J2001; J3010; J1644; Q9967

== ENCOUNTER → 2024-05-05 | Outpatient (CLI) | payer MEDICARE ==
--- NOTE | 2024-05-05 10:54 | MM ---
Reason for Exam: Clinical finding. Last mammogram was performed 6 year(s) and 4 month(s) ago. Patient History: Menarche at age 12. First Full-Term at age 19. Postmenopausal. Patient used Hormonal Contraceptives for 2 years. Risk Values: Marva 5 year model risk: 1.2%. NCI Lifetime model risk: 5.3%. Prior Study Comparison: 12/17/2001 Bilateral Screening Mammogram, [facility]. 08/14/2013 Bilateral Screening Mammogram, [facility]. 12/27/2017 Bilateral Screening Mammogram, [facility]. Tissue Density: The breasts are heterogeneously dense, which may obscure small masses. Findings: Analyzed By CAD. No evidence for mass or distortion. Benign calcifications seen bilaterally. Ultrasound recommended for palpable abnormality left breast for which I see no mass lesion on mammography. Overall Assessment: Incomplete: need additional imaging evaluation, BI-RAD 0 Management: Diagnostic Breast Ultrasound of the left breast. . Results were given to the patient verbally at the time of exam. Patient should continue monthly self-breast exams. A clinical breast exam by your physician is recommended on an annual basis. This exam should not preclude additional follow-up of suspicious palpable abnormalities. Note on Marva scores and lifetime risk: 1. A Marva score greater than 3% is considered moderate risk. If this is the case, consider specialist referral to assess eligibility for a risk reducing agent. 2. If overall lifetime risk for the development of breast cancer is 20% or higher, the patient may qualify for future screening with alternating mammogram and breast MRI. [facility], , 05/05/2024 10:51 AM. Electronically signed and approved by: Sen Jarquin M.D. Radiologis
--- NOTE | 2024-05-05 11:09 | USB ---
Reason for Exam: Clinical finding. Patient History: Menarche at age 12. First Full-Term at age 19. Postmenopausal. Patient used Hormonal Contraceptives for 2 years. Risk Values: Marva 5 year model risk: 1.2%. NCI Lifetime model risk: 5.3%. Technique: Method: Targeted. Prior Study Comparison: 12/17/2001 Bilateral Screening Mammogram, [facility]. 08/14/2013 Bilateral Screening Mammogram, [facility]. 12/27/2017 Bilateral Screening Mammogram, [facility]. Findings: The lower outer quadrant of the left breast, the axilla of the left breast and the retroareolar of the left breast were scanned. No solid or cystic masses are identified.. Overall Assessment: Negative, BI-RAD 1 Management: Screening Mammogram of both breasts in 1 year. A clinical breast exam by your physician is recommended on an annual basis and results should be correlated with mammographic findings. This exam should not preclude additional follow-up of suspicious palpable abnormalities. Results were given to the patient verbally at the time of exam. [facility], , 05/05/2024 11:04 AM. Electronically signed and approved by: Sen Jarquin M.D. Radiologis
== END | disposition home or self-care (01) ==
LOC: RADMAMWWP 10:31
PROVIDERS: ATTEND Family Medicine
DX: R92.333 Mammographic heterogeneous density, bilateral breasts (principal); N63.20 Unspecified lump in the left breast, unspecified quadrant; Z78.0 Asymptomatic menopausal state; Z92.0 Personal history of contraception
CPT/HCPCS: 77062; 77066

== ENCOUNTER 2024-09-25 09:01 | Day surgery (SDC) | payer MEDICARE ==
[2024-09-23 15:41] VITALS: BMI 26.0
[~2024-09-25 09:01] MED LIST: HEPARIN SODIUM,PORCINE 5,000 UNIT/ML 1 ML VIAL SQ PRN; Pre Op ABX Message 1 EACH MISC MISCELLANE ONE
[2024-09-25] MEDS ORDERED: MIDAZOLAM 2 MG/2 ML VIAL IV PRN (09:14)
[2024-09-25] MEDS ORDERED: fentaNYL (PF) 50 MCG/ML 2 ML AMP IVP PRN (09:14)
[2024-09-25] MEDS ORDERED: HYDROmorphone 0.5 MG/0.5 ML SYRINGE IVP PRN (09:14)
[2024-09-25] MEDS ORDERED: LIDOCAINE 1% (10MG/ML) FOR IV START INTRADERMA PRN (09:14)
[2024-09-25 09:42] LABS: Glucose,Whole Blood 142 mg/dL (70-110)
[2024-09-25] MEDS: LACTATED RINGERS 1,000 ML IV SCH (09:42)
[2024-09-25] MEDS: ONDANSETRON 4 MG/2 ML VIAL IVP ONE (09:43)
[2024-09-25] MEDS: DEXAMETHASONE SOD PHOSPHATE 4 MG/ML 1 ML VIAL IV ONE (09:43)
[2024-09-25] MEDS: IV FLUID CONTINUATION 1,000 ML IV ONE (09:44)
[2024-09-25] MEDS: FAMOTIDINE 20 MG/2 ML VIAL IVP PRN (10:45)
[2024-09-25] MEDS: ACETAMINOPHEN TAB 500 MG TAB PO PRN (10:46)
[2024-09-25] MEDS ORDERED: MIDAZOLAM 2 MG/2 ML VIAL ONE (10:47)
[2024-09-25] MEDS ORDERED: fentaNYL (PF) 50 MCG/ML 2 ML AMP ONE (10:47)
[2024-09-25] MEDS ORDERED: PROPOFOL 10 MG/ML 20 ML VIAL IV ONE (10:47)
[2024-09-25] MEDS ORDERED: PHENYLEPHRINE 10 MG/ML VIAL ONE (10:47)
[2024-09-25] MEDS: HEPARIN SODIUM,PORCINE 5,000 UNIT/ML 1 ML VIAL SQ PRN (10:50)
[2024-09-25] MEDS: BUPIVACAINE (PF) 0.25% 30 ML VIAL SQ ONE (11:27)
--- NOTE | 2024-09-25 11:51 | P.OP ---
Date of Procedure: 09/25/24 Procedure(s) Performed: PREOPERATIVE DIAGNOSIS: Left upper back recurrent lipoma POSTOPERATIVE DIAGNOSIS: Same PROCEDURE: Excision left upper back lipoma with intermediate closure SURGEON: Tatiana EBL: Haris ruiz ANESTHESIA: General COMPLICATIONS: None OPERATIVE PROCEDURE: Patient placed in the right decubitus position after general anesthesia achieved. Left upper back prepped and draped sterilely. The previous vertical scar was excised along with the subcutaneous palpable lipomatous mass. The patient's lipomatous mass was adherent to the surrounding fatty structures making it somewhat difficult to discern where the lipomatous tissue was versus normal fat. The size of the specimen of fat removed measured 7 x 6 x 5 cm. Subcutaneous tissues irrigated with saline. No bleeding seen. Subcutaneous layers closed using interrupted 3-0 Vicryl sutures. Skin closed using a running 4-0 Monocryl stitch. Skin glue and sterile dressings applied. Length of intermediate closure 6 cm. DISPOSITION: Stable to recovery room
[2024-09-25 11:58] VITALS: TEMP 97
[2024-09-25 12:05] LABS: Glucose,Whole Blood 150 mg/dL (70-110)
[2024-09-25 12:21] VITALS: RESP 16
[2024-09-25 12:49] VITALS: BP 110/71; PULSE 81
== END 2024-09-25 13:05 | disposition home or self-care (01) ==
LOC: OR 09:01
PROVIDERS: ATTEND Surgery
DX: D17.1 Benign lipomatous neoplasm of skin and subcutaneous tissue of trunk
CPT/HCPCS: 88304